=== PATIENT | male | born 1970 | race Caucasian/White ===

== ENCOUNTER 2020-01-28 12:09 | Outpatient (CLI) | payer OTHER, SELFPAY | END 2020-01-28 12:10 | disposition home or self-care (01) | LOC: ANHLAB 12:13 | PROVIDERS: PCP Family Medicine; Visit Provider Nurse Practitioner Adult Health | DX: R82.998 Other abnormal findings in urine (principal) | CPT/HCPCS: 87077; 87086; 87088; 87186 ==

== ENCOUNTER 2020-07-21 10:41 | Outpatient (CLI) | payer OTHER, SELFPAY ==
[2020-07-21 11:36] LABS: Add Urine Microscopic? YES; Appearance Urine Clear (Clear); Bacteria Urine 4+ /hpf; Bilirubin Urine Negative (Negative); Color Urine Yellow (Yellow); Glucose Urine UA Negative (Negative); Ketones Urine Negative (Negative); Leukocyte Esterase Ur 2+ LEU/UL (Negative); Mucus Urine Rare /lpf; Nitrate Urine Positive (Negative); Protein Urine 1+ mg/dL (Negative); Specific Grav Ur 1.024 (1.001-1.035); Squamous Epithelial Cell Urine Rare /hpf (Few); Urobilinogen Urine Negative mg/dL (<2.0); WBC Urine >75 /hpf
[2020-07-21 11:43] LABS: Blood Urine Negative (Negative)
== END 2020-07-21 10:42 | disposition home or self-care (01) ==
LOC: ANHLAB 10:43
PROVIDERS: PCP Family Medicine; Visit Provider Family Medicine
DX: N39.0 Urinary tract infection, site not specified (principal)
CPT/HCPCS: 81001; 87077; 87086; 87088; 87186

== ENCOUNTER 2022-06-21 11:30 | Outpatient (CLI) | payer OTHER, SELFPAY ==
[2022-06-21 12:14] LABS: Alanine Aminotransferase 39 U/L (6-50); Albumin Level 4.4 g/dL (3.5-5.1); Alkaline Phosphatase 49 U/L (38-126); Anion Gap 10 mmol/L (8-16); Aspartate Amino Transferase 35 U/L (17-59); Blood Urea Nitrogen 13 mg/dL (9-20); Carbon Dioxide 26 mmol/L (22-30); Chloride 103 mmol/L (98-107); Cholesterol 193 mg/dL (0-200); Estimated Glomerular Filt Rate > 60; Glucose 82 mg/dL (65-110); HDL Direct 32 mg/dL; Potassium 4.1 mmol/L (3.4-5.0); Sodium 139 mmol/L (137-145); Triglycerides 224 mg/dL (<150)
[2022-06-21 12:24] LABS: LDL Cholesterol Direct 113 mg/dL
[2022-06-21 13:13] LABS: Prostate Specific Antigen 1.5 ng/mL (< OR = 4.0)
== END 2022-06-21 11:31 | disposition home or self-care (01) ==
PROVIDERS: PCP Family Medicine; Referring Provider Nurse Practitioner Adult Health; Visit Provider Family Medicine
DX: Z13.228 Encounter for screening for other metabolic disorders (principal); Z13.220 Encounter for screening for lipoid disorders; Z12.5 Encounter for screening for malignant neoplasm of prostate
CPT/HCPCS: 36415; 80053; 80061; 84153; G0103

== ENCOUNTER 2022-10-17 12:29 | Outpatient (CLI) | payer OTHER, SELFPAY ==
--- NOTE | ~2022-10-17 | CT_ITS ---
EXAMINATION: CT abdomen pelvis wo/w con DATE: 10/17/2022 13:18 INDICATION: Gross hematuria TECHNIQUE: Computed tomography (CT) of the abdomen and pelvis was performed without and with 130 cc O mnipaque 350 intravenous contrast. The dose-length product was 1404.89 mGy-cm. Automated exposure con trol and iterative reconstruction technique were employed. COMPARISON: CT dated 10/17/2022 FINDINGS: Lung bases are unremarkable. Heart size normal. No significant pleural or pericardial effus ion. There is a large bladder stone measuring 5 x 2.8 cm. There is bladder wall thickening. There is a bladder diverticulum anteriorly. Prostate gland is enlarged. Small hiatal hernia. There is thickeni ng of the rectum. Cannot exclude rectal mass. No renal stones. Nonobstructive bowel pattern. No hydro nephrosis. Ureters are normal in course and caliber. Small subcentimeter hypodensity of the right kid mandi, too small to characterize, although most likely benign cysts. Fatty infiltration of the liver. The spleen, pancreas, adrenal glands and left kidney are unremarkabl e. Gallbladder is present. No significant vascular abnormality. No lymphadenopathy. Normal appendix. Severe osteoarthritis of the hips. Spinal rods noted extending inferiorly to the lower thoracic spine . Moderate lower thoracic spondylosis with mild wedge compression deformities of T11 and T12, likely chronic. No free air or free fluid. IMPRESSION: 1. Thickened slightly irregular bladder wall, consistent with cystitis versus hypertrophy from outlet obstruction. Small bladder diverticulum. 2: Large bladder stone. 3: Abnormal rectal wall thickening. Cannot exclude rectal carcinoma. Recommend clinical correlation. Reviewed, dictated and finalized at location L. IMPRESSION: 1. Thickened slightly irregular bladder wall, consistent with cystitis versus h ypertrophy from outlet obstruction. Small bladder diverticulum. 2: Large bladder stone. 3: Abnormal rectal wall thickening. Cannot exclude rectal carcinoma. Recommend clinical correlation.
== END 2022-10-17 12:30 | disposition home or self-care (01) ==
LOC: ANHIMG 12:31
PROVIDERS: PCP Family Medicine; Visit Provider Nurse Practitioner Adult Health
DX: R31.0 Gross hematuria (principal); N21.0 Calculus in bladder
CPT/HCPCS: 74178; Q9967

== ENCOUNTER 2022-10-26 01:57 | Day surgery (SDC) | payer OTHER, SELFPAY ==
--- NOTE | 2022-10-24 07:17 | P.HP_ITS ---
History of Present Illness History of Present Illness Consent: Risks, benefits, and alternatives have been discussed and questions answered. Patient agrees to proceed with procedure. Chief complaint: bladder stone Narrative: Mickey Coates is a 52 year old male with a known neurogenic bladder that requires intermittent self catheterization. He recently underwent evaluation for recurrent urinary tract infection was found to have a large bladder stone measuring 5 x 2.5 cm. After discussion of options he has elected for cystoscopy with laser lithotripsy and extraction bladder stone. He is aware the risks including, but not limited to, hematuria, need for catheterization, bladder injury and need for additional procedures in the future Review of Systems Review of Systems: All systems reviewed & are unremarkable except as noted in HPI and below PMFSH Past Medical History Medical History Paralysis Surgical History Surgical History H/O Spinal surgery Social History Social History Smoking status: Never smoker Alcohol intake: never Substance use: never Lack of Transportation: No Lack of Food: Never True Current Housing: I Have Housing Concerned About Future Housing: No Difficulty Paying Gas/Electric Bills: No Difficulty Paying for Meds: No Currently Unemployed: No Education: High School Diploma/GED Difficulty w/ Childcare or Family Care: No Living arrangements: with family Additional living arrangements comments: Occupation/Education: occupation 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 (if verbalized by the patient): Male Sexual Orientation (if Verbalized by the Patient): Straight or Heterosexual Agree to blood products: Yes Meds Home Medications and Allergies Home Medications Medication Instructions Recorded Confirmed Type baclofen 20 mg tablet 20 mg PO TID PRN muscle spasms #90 04/07/22 04/07/22 Rx tabs oxybutynin chloride 5 mg 5 mg PO TID #90 tabs 08/24/22 Rx tablet,extended release 24 hr Allergies Allergy/AdvReac Type Severity Reaction Status Date / Time No Known Allergies Allergy Mild Verified 04/07/22 16:25 Exam Const: General: no acute distress Resp: Effort & Inspection: normal respiratory effort GI: Inspection: non-distended GI Palp: No abdominal tenderness and No Guarding due to palpation present (GI) Auscultation: normal bowel sounds Assessment and Plan Assessment and plan (1) Bladder stone: Code(s): N21.0 - Calculus in bladder Status: Acute Assessment and Plan: * cystoscopy, laser lithotripsy bladder stone extraction
[2022-10-25 08:54] VITALS: BMI 29.0
--- NOTE | 2022-10-25 09:11 | PC.NURSE ---
Report to the Outpatient Waiting Room, entrance under the green pavilion located off [facility], at time 0815 on date 10/26/22. Planned Procedure Time: 1015. Time changes happen often and if your time is changed the preop area will call you the afternoon before. - You and your visitor will be asked to self-screen and do not enter if you have any COVID symptoms. - A mask is optional within the hospital at this time. Patients may have clear liquids (water, carbonated beverages, clear teas, apple juice) until 3 hours prior to surgery with a maximum of 20 ounces. - No food from midnight until time of surgery Take the following medications with a SIP of water the morning of surgery: BACLOFEN DO NOT STOP ANY OF YOUR OTHER PRESCRIPTION MEDICATIONS PRIOR TO SURGERY EXCEPT THE FOLLOWING Medications to discontinue per physician: VITAMINS/SUPPLEMENTS Date to take last dose: NO MORE UNTIL AFTER SURGERY Please no make-up, nail wolof, hairspray, perfume, deodorant, or body powder the day of surgery. No jewelry (including any body piercings) or valuables the day of surgery, leave them at home. Please take a shower or bath the night before, or the morning of, surgery with an antibacterial soap. Wear comfortable, loose fitting clothing. - Jewelry must be removed prior to entering the operating room. Rings and piercings that are not removed may be cut off. - The hospital will not accept responsibility for valuables. - Please leave all valuables, including medications, at home the day of surgery. If you are going home after surgery, a licensed local intermodal truck driver must drive you home. - NO public transportation without another adult if you receive anesthesia. - We recommend that an adult stay with you for 24 hours following discharge. - We also recommend that you do not drive, make important decision, drink alcoholic beverages, or take any drugs that were not prescribed by your health care provider for at least 24 hours after your discharge time. Follow any additional instructions given to you from your surgeon. If you or anyone in your household have experienced Covid symptoms in the past week, please notify your surgeon or the nurse liaison at the phone number below for possible testing. Telephone instructions given to PT - DEON SANABRIA and asked if any additional questions and then verbalized understanding. Patient advised to call surgeon office or pre surgery nurse liaison [phone] if any additional questions.
[2022-10-26] VITALS (9 sets, daily range): BP systolic 98–138; BP diastolic 43–89; PULSE 65–81; RESP 10–20; TEMP 36.2–36.8; O2SAT 100
--- NOTE | ~2022-10-26 | XR_ITS ---
EXAMINATION: XR fluoroscopy no charge DATE: 10/26/2022 10:24 INDICATION: Bladder stone. TECHNIQUE: A single intraoperative fluoroscopic view of the pelvis was obtained. I was not present. F luoroscopy exposure time was 38 seconds. COMPARISON: CT abdomen and pelvis 10/17/2022 FINDINGS: There is a wire in the bladder. There is a large stone in the bladder. IMPRESSION: 1. Large bladder stone. Reviewed, dictated and finalized at location A. IMPRESSION: 1. Large bladder stone.
--- NOTE | 2022-10-26 06:44 | WPDHPUPDATE1 ---
History and Physical Update Update Date/Time: 10/26/22 06:44 History and Physical has been reviewed, including an updated exam of the patient. There are NO changes in the patient's condition. Risks, benefits, and alternatives have been discussed and questions answered. Patient agrees to proceed with procedure.
[2022-10-26] MEDS: LACTATED RINGERS 1,000 ML 30 ML IV CONT ×2 (09:35→11:35)
--- NOTE | 2022-10-26 09:45 | WPDANESEPPF ---
Anes - Initial Pre Proc Eval Procedure: Operation Date: 10/26/22 10:15 Proposed Procedures p Cystolitholapaxy - Dylan Alcaraz MD Date/Time: 10/26/22 09:45 Surgeon: Dylan Alcaraz MD Pre Op Diagnosis: bladder stone Patient Data Age: 52 Gender: M Height: 1.79 m Weight: 93 kg Last Vital Signs Temp 36.8 C 10/26/22 09:00 Pulse 74 10/26/22 09:00 Resp 16 10/26/22 09:00 BP 130/63 10/26/22 09:00 Pulse Ox 100 10/26/22 09:00 O2 Del Method Room Air 10/26/22 09:00 Allergies Allergy/AdvReac Type Severity Reaction Status Date / Time No Known Allergies Allergy Mild Verified 10/26/22 09:24 Home Medications Medication Instructions Recorded Confirmed Type baclofen 20 mg tablet 20 mg PO TID PRN muscle spasms #90 04/07/22 10/26/22 Rx tabs oxybutynin chloride 5 mg 5 mg PO TID #90 tabs 08/24/22 10/26/22 Rx tablet,extended release 24 hr cholecalciferol (vitamin D3) 125 125 mcg PO DAILY 10/25/22 10/26/22 History mcg (5,000 unit) tablet (Vitamin D3) cranberry fruit 450 mg tablet 450 mg PO DAILY 10/25/22 10/26/22 History (cranberry) glucosamine sulfate 500 mg tablet 500 mg PO DAILY 10/25/22 10/26/22 History (Glucosamine) mecobalamin (vitamin B12) 1,000 1,000 mcg PO DAILY 10/25/22 10/26/22 History mcg chewable tablet (B12 Active) turmeric 400 mg capsule 400 mg PO DAILY 10/25/22 10/26/22 History Patient hx anesthesia problems: none Family hx anesthesia problems: none Results Review: All pre-operative results and documents have been reviewed as part of the pre-operative evaluation. [facility] Past Medical History Medical History Paralysis Surgical History Surgical History H/O Spinal surgery Social History Social History Smoking status: Never smoker Alcohol intake: never Substance use: never Substance use type: does not use Lack of Transportation: No Lack of Food: Never True Current Housing: I Have Housing Concerned About Future Housing: No Difficulty Paying Gas/Electric Bills: No Difficulty Paying for Meds: No Currently Unemployed: No Education: High School Diploma/GED Difficulty w/ Childcare or Family Care: No Living arrangements: with family Additional living arrangements comments: Occupation/Education: occupation 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 (if verbalized by the patient): Male Sexual Orientation (if Verbalized by the Patient): Straight or Heterosexual Spiritual care concerns: No Agree to blood products: Yes Anes - Eval Final PreProcedure Day of Procedure 10/26/22 09:45 Patient weight: overweight Heart: regular rate and rhythm Lungs: clear to auscultation Airway: Mallampati scale class II Neurological: alert and oriented Last oral intake: >/= 8 hours ASA classification: III Emergent: no Anesthetic plan: proceed Anesthesia type and monitoring: general LMA and standard monitoring Results Review: All pre-operative results and documents have been reviewed as part of the pre-operative evaluation. Informed Consent: The patient's anesthetic plan and its attendant risks and benefits were discussed with the patient/family/POA. Questions were solicited and answers provided to the satisfaction of the patient/family/POA.
[2022-10-26] MEDS: ceFAZolin 2 GM/D5W 50 ML 2 GM/50 ML BAG IVPB (10:02)
--- NOTE | 2022-10-26 11:31 | W.PM.PROC2 ---
Procedure Note - Detailed Date of Procedure 10/26/22 Pre-op Diagnosis Bladder stone Post-op Diagnosis Other ( 1. Tight bladder neck contracture 2. Large bladder stone) Procedure Performed Cystoscopy, urethral dilatation and laser lithotripsy and extraction of a large bladder calculus Surgeon Dylan Alcaraz MD Anesthesia General Description of Procedure patient is brought to the operative suite was prepped draped in routine sterile fashion while in dorsal lithotomy position after the uneventful induction of a general anesthetic. Cystoscopy is undertaken with a 21 F rigid cystoscope. He has a very tight bladder neck contracture which precludes entry into the bladder. I placed a wire into his bladder and confirmed positioning by fluoroscopy. I then dilated the bladder neck from 8 F to 20 F. Cystoscopy was then undertaken in his large bladder stone is identified. This measures at least 3 cm in long axis. Using a 550 micron holmium laser I fractured this in the multiple pieces which were extracted using an [employer] evacuator. I placed a [address] catheter at the termination. Efflux was basically clear. He tolerated the procedure well road I planned leave the catheter for a week.
--- NOTE | 2022-10-26 11:35 | SUR.PREOP ---
pt straight cathed self.
--- NOTE | 2022-10-26 12:45 | SUR.PHASEI ---
Seen by Dr Alcaraz, urine light pink and clear with CBI turned off. Disconnected CBI and plugged port.
== END 2022-10-26 13:55 | disposition home or self-care (01) ==
PROVIDERS: PCP Family Medicine; Visit Provider Urology
PROC: 0TCB8ZZ Extirpation of Matter from Bladder, Via Natural or Artificial Opening Endoscopic (ICD-10-PCS; CPT 52352; principal; 2022-10-26 10:15)
DX: N21.0 Calculus in bladder (principal); N31.9 Neuromuscular dysfunction of bladder, unspecified
CPT/HCPCS: 52318; 82365; 88300; 99199; C1726; C1769; J0690; J2250; J2405; J2704; J3010; J7120

== ENCOUNTER 2023-07-11 00:56 | Day surgery (SDC) | payer OTHER, SELFPAY ==
[2023-05-22 14:38] VITALS: BMI 29.4
--- NOTE | 2023-06-11 10:18 | SUR.PREOP ---
Addendum entered by LEONARDO McleanA 06/11/23 10:25: Patient mention that he has an appointment this afternoon with urologist related to UTI symptoms. Spoke with Dr. Rice and he wants him to reschedule to next week or later. Relayed information to Mynor and he is going to check with his to see what date works better for her and call me back. Original Note: Patient called regarding upcoming procedure. Reviewed preop instructions, appointment times, and procedure prep.
--- NOTE | 2023-06-14 13:22 | PC.NURSE ---
Pt re scheduled procedure. Pt updated with new dates and times.
--- NOTE | 2023-07-09 11:04 | SUR.PREOP ---
Patient called regarding upcoming procedure. Voicemail left regarding appointment times.
[2023-07-11 10:20] VITALS: BP 168/78; PULSE 88; RESP 18; TEMP 36.2; O2SAT 100
[2023-07-11] MEDS: LACTATED RINGERS 1,000 ML 150 ML IV CONT (10:31)
--- NOTE | 2023-07-11 11:00 | PM.HPGS ---
History of Present Illness History of Present Illness Consent: Risks, benefits, and alternatives have been discussed and questions answered. Patient agrees to proceed with procedure. Chief complaint: Dysphagia,Abnormal findings on diagnostic imaging Narrative: Mickey Coates is a 53 year old male here for egd and colonoscopy, he is paraplegic and last colonoscopy about 13 years ago, CT scan incidental finding of rectal thickening, also has intermittent dysphagia, he is not using any ppi. Review of Systems Constitutional: Constitutional: Denies headache(s) Eyes: Eyes: Denies blurry vision ENT: Reports Normal hearing present, Denies headache(s) and Denies neck pain Cardiovascular: Cardiovascular: Denies chest pain and Denies dyspnea Respiratory: Respiratory: Denies dyspnea Gastrointestinal: Gastrointestinal: Reports no additional gastrointestinal complaints Musculoskeletal: Comments: paraplegic Integumentary/Breasts: Skin/Breast: Denies dry skin Neurologic: Reports Normal hearing present and Denies headache(s) Psychiatric: Psychiatric: Denies anxiety Endocrine: Endocrine: Denies change in body appearance Hematologic/Lymphatic: Hematologic/Lymphatic: Denies easy bleeding Allergic/Immunologic: Allergic/Immunologic: Denies urticaria PMF Past Medical History Medical History (Updated 07/11/23 @ 11:03 by Tyler Fontenot MD) Abnormality of rectum Dysphagia Paralysis Surgical History Surgical History H/O Spinal surgery Social History Social History Smoking status: Never smoker Alcohol intake: never Substance use: never Substance use type: does not use Lack of Transportation: No Lack of Food: Never True Current Housing: I Have Housing Concerned About Future Housing: No Difficulty Paying Gas/Electric Bills: No Difficulty Paying for Meds: No Currently Unemployed: No Education: High School Diploma/GED Difficulty w/ Childcare or Family Care: No Living arrangements: with family Additional living arrangements comments: Occupation/Education: occupation 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 (if verbalized by the patient): Male Sexual Orientation (if Verbalized by the Patient): Straight or Heterosexual Spiritual care concerns: No Agree to blood products: Yes Meds Home Medications and Allergies Home Medications Medication Instructions Recorded Confirmed Type cholecalciferol (vitamin D3) 125 125 mcg PO DAILY 10/25/22 05/22/23 History mcg (5,000 unit) tablet (Vitamin D3) glucosamine sulfate 500 mg tablet 500 mg PO DAILY 10/25/22 05/22/23 History (Glucosamine) mecobalamin (vitamin B12) 1,000 1,000 mcg PO DAILY 10/25/22 05/22/23 History mcg chewable tablet (B12 Active) turmeric 400 mg capsule 400 mg PO DAILY 10/25/22 05/22/23 History baclofen 20 mg tablet 20 mg PO TID PRN muscle spasms #90 03/16/23 05/22/23 Rx tabs baclofen 10 mg tablet 10 mg PO BID #60 tabs 05/01/23 05/22/23 Rx oxybutynin chloride 5 mg 5 mg PO TID #90 tabs 06/25/23 Rx tablet,extended release 24 hr Allergies Allergy/AdvReac Type Severity Reaction Status Date / Time No Known Allergies Allergy Mild Verified 07/11/23 10:20 Vital Signs Vital Signs - 24 hr 07/11/23 10:20 Temperature 97.2 F L Pulse Rate 88 Respiratory Rate 18 Blood Pressure 168/78 H Pulse Oximetry 100 Oxygen Delivery Room Air Exam Const: General: comfortable and no acute distress HENMT: Face/Nose/Sinus: Normal nares present Eyes: General: appearance normal, both eyes and all related structures Neck: Neck: no JVD Resp: Auscultation: clear to auscultation bilaterally Cardio: Rate: regular rate Rhythm: regular rhythm GI: Inspection: non-distended GI Palp: Yes Soft to palpation Skin: General skin exam: normal co
--- NOTE | 2023-07-11 11:08 | WPDANESEPPF ---
Anes - Initial Pre Proc Eval Procedure: Operation Date: 07/11/23 11:30 Proposed Procedures p Esophagogastroduodenoscopy & Colonoscopy - Tyler Fontenot MD Date/Time: 07/11/23 11:08 Surgeon: Tyler Fontenot MD Pre Op Diagnosis: Dysphagia,Abnormal findings on diagnostic imaging Patient Data Age: 53 Gender: M Height: 1.78 m Weight: 93 kg Last Vital Signs Temp 97.2 F L 07/11/23 10:20 Pulse 88 07/11/23 10:20 Resp 18 07/11/23 10:20 BP 168/78 H 07/11/23 10:20 Pulse Ox 100 07/11/23 10:20 O2 Del Method Room Air 07/11/23 10:20 Allergies Allergy/AdvReac Type Severity Reaction Status Date / Time No Known Allergies Allergy Mild Verified 07/11/23 10:20 Home Medications Medication Instructions Recorded Confirmed Type cholecalciferol (vitamin D3) 125 125 mcg PO DAILY 10/25/22 05/22/23 History mcg (5,000 unit) tablet (Vitamin D3) glucosamine sulfate 500 mg tablet 500 mg PO DAILY 10/25/22 05/22/23 History (Glucosamine) mecobalamin (vitamin B12) 1,000 1,000 mcg PO DAILY 10/25/22 05/22/23 History mcg chewable tablet (B12 Active) turmeric 400 mg capsule 400 mg PO DAILY 10/25/22 05/22/23 History baclofen 20 mg tablet 20 mg PO TID PRN muscle spasms #90 03/16/23 05/22/23 Rx tabs baclofen 10 mg tablet 10 mg PO BID #60 tabs 05/01/23 05/22/23 Rx oxybutynin chloride 5 mg 5 mg PO TID #90 tabs 06/25/23 Rx tablet,extended release 24 hr Patient hx anesthesia problems: none Family hx anesthesia problems: none Results Review: All pre-operative results and documents have been reviewed as part of the pre-operative evaluation. [facility] Past Medical History Medical History (Updated 07/11/23 @ 11:03 by Tyler Fontenot MD) Abnormality of rectum Dysphagia Paralysis Surgical History Surgical History H/O Spinal surgery Social History Social History Smoking status: Never smoker Alcohol intake: never Substance use: never Substance use type: does not use Lack of Transportation: No Lack of Food: Never True Current Housing: I Have Housing Concerned About Future Housing: No Difficulty Paying Gas/Electric Bills: No Difficulty Paying for Meds: No Currently Unemployed: No Education: High School Diploma/GED Difficulty w/ Childcare or Family Care: No Living arrangements: with family Additional living arrangements comments: Occupation/Education: occupation 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 (if verbalized by the patient): Male Sexual Orientation (if Verbalized by the Patient): Straight or Heterosexual Spiritual care concerns: No Agree to blood products: Yes Anes - Eval Final PreProcedure Day of Procedure 07/11/23 11:08 Patient weight: obese Heart: regular rate and rhythm Lungs: clear to auscultation Airway: Mallampati scale class II Neurological: alert and oriented Last oral intake: >/= 8 hours ASA classification: III Emergent: no Anesthetic plan: proceed Anesthesia type and monitoring: general GIVS and standard monitoring Results Review: All pre-operative results and documents have been reviewed as part of the pre-operative evaluation. Informed Consent: The patient's anesthetic plan and its attendant risks and benefits were discussed with the patient/family/POA. Questions were solicited and answers provided to the satisfaction of the patient/family/POA.
--- NOTE | 2023-07-11 11:16 | SUR.OPER ---
EGD began at 1109 and ended at 1114. Colonoscopy began at 1116.
[2023-07-11 11:40] VITALS: BP 111/74; PULSE 69; RESP 24; O2SAT 95
[2023-07-11 11:50] VITALS: BP 119/81; PULSE 63; RESP 17; O2SAT 95
== END 2023-07-11 12:07 | disposition home health service (06) ==
PROVIDERS: PCP Family Medicine; Visit Provider Internal Medicine Gastroenterology
PROC: 0DJ08ZZ Inspection of Upper Intestinal Tract, Via Natural or Artificial Opening Endoscopic (ICD-10-PCS; CPT 43235; principal; 2023-07-11 11:30)
DX: K62.3 Rectal prolapse (principal); K62.1 Rectal polyp; R13.10 Dysphagia, unspecified; G82.20 Paraplegia, unspecified; E66.9 Obesity, unspecified; Z68.29 Body mass index [BMI] 29.0-29.9, adult
CPT/HCPCS: 45385; 43235; 88305; J2704; J7120

== ENCOUNTER 2024-03-24 10:54 | Inpatient (IN) | payer OTHER, SELFPAY ==
--- NOTE | ~2024-03-24 | XR_ITS ---
EXAMINATION: [id number] DATE: 03/24/2024 11:32 INDICATION: Formation at the left knee concerning for dislocation in a paraplegic TECHNIQUE: AP and lateral views of the left knee were obtained. COMPARISON: None. FINDINGS: Spiral fracture of the distal left femoral diaphysis with 20 degrees anterior angulation and 3 cm pro ximal migration. There is prominent heterotopic ossification along the posterior margin of the femora l diaphysis immediately proximal to the fracture fragment. Soft tissue swelling and edema about the f racture and extending distally to the knee. The knee joint is not well profiled but alignment appears grossly anatomic. There is at least mild osteoarthritis at the tail femoral compartment. No evident knee joint effusion. IMPRESSION: 1. Spiral fracture of the distal left femoral diaphysis with 20 degrees anterior angulation 3 similar proximal migration. Reviewed, dictated and finalized at location A. IMPRESSION: 1. Spiral fracture of the distal left femoral diaphysis with 20 degrees anterio r angulation 3 similar proximal migration.
--- NOTE | ~2024-03-24 | US_ITS ---
EXAMINATION: US venous doppler [facility] DATE: 03/25/2024 21:58 INDICATION: left leg swelling . TECHNIQUE: Grayscale images without and with compression and Doppler images of the left lower extremi ty veins were obtained. COMPARISON: None FINDINGS: The popliteal vein could not be evaluated due to overlying cast/bandage material. The left common fem oral vein, profunda (deep) femoral vein, femoral vein, peroneal vein, posterior tibial veins, and gr eater saphenous vein are patent. IMPRESSION: No evidence of deep venous thrombosis in the visualized lower extremity veins. Reviewed, dictated and finalized at location K.
--- NOTE | ~2024-03-24 | XR_ITS ---
EXAMINATION: XR hip LT 2V w AP pelvis DATE: 03/24/2024 11:31 INDICATION: Left hip dislocation. TECHNIQUE: An anteroposterior view of the pelvis and 3 views of left hip were obtained. COMPARISON: CT abdomen and pelvis 10/17/2022 FINDINGS: Alignment is normal. No fracture. There is moderate osteoarthritis of the hips. There is fu berta of the sacroiliac joints and pubic symphysis. There are stones in the bladder. IMPRESSION: 1. Moderate osteoarthritis of the hips. 2. Stones in the bladder. Reviewed, dictated and finalized at location B.
--- NOTE | ~2024-03-24 | XR_ITS ---
EXAM: XR femur LT min 2V DATE: 03/26/2024 18:22 HISTORY: reevaluate fx . COMPARISON: 03/24/2024. FINDINGS: Decreased mineralization. Spiral fracture of the left femoral midshaft with 2.5 cm overlap , 1.1 cm lateral displacement and 15 degrees lateral angulation and 1.1 mm anterior displacement with 17 degrees anterior angulation. Heterotopic bone formation about the fracture site. No lytic or milla tic lesion. Degenerative changes in the hip and knee. No erosion or periosteal change. Multiple bladd er stones. IMPRESSION: Spiral fracture of the left femoral midshaft with mild anterolateral displacement/angulat ion and mild overlap. Reviewed, dictated and finalized at location K. IMPRESSION: Spiral fracture of the left femoral midshaft with mild anterolatera l displacement/angulation and mild overlap.
[2024-03-24 10:58] VITALS: BP 138/74; PULSE 130; RESP 20; TEMP 37; O2SAT 100
--- NOTE | 2024-03-24 11:04 | ED_ITS ---
HPI - Extremity Problem General Chief complaint: Extremity Problem,Nontraumatic <Cecy Coleman APRN - Last Filed: 03/24/24 11:09> Stated complaint: L knee swelling after hearing a POP <Cecy Coleman APRN - Last Erickson ed: 03/24/24 11:09> Time Seen by Provider: 03/24/24 11:00 <Cecy Coleman APRN - Last Filed: 03/24/24 11:09> Focused HPI: Patient is a 53-year-old male who presents to the ER with concerns of left lower extremity swelling. He reports he is a paraplegic and yesterday noticed his left femur and knee started swelling after transferring from his chair to the bed. Patient reports he has accidentally broken his right femur in the past. He reports noticed a loud pop yesterday afternoon. His left LE, specifically knee and upper leg are now swollen. Patient also has concerns that he may have a UTI due to decreased urine production and dark-colored urine. He denies chest pain, shortness of breath, recent fevers. GENERAL: Well-appearing, well-nourished, and in no acute distress. HEAD: Normocephalic, atraumatic. CHEST: Clear to auscultation. ?No respiratory distress. HEART: Tachycardia and rhythm.? NEURO: ?Alert and oriented x3. SKIN: LLE thigh and knee swelling. Patient screened in triage and initial orders placed.? ?Additional care and disposition to be based upon?diagnostic testing and treatment. <Cecy Coleman APRN - Last Filed: 03/24/24 11:09> History of Present Illness HPI Narrative: Agree with HPI <Tyree Velasco MD - Last Filed: 03/25/24 09:47> Related Data Home medications: Home Medications Medication Instructions Recorded Confirmed cholecalciferol (vitamin D3) 125 125 mcg PO DAILY 10/25/22 05/22/23 mcg (5,000 unit) tablet (Vitamin D3) glucosamine sulfate 500 mg tablet 500 mg PO DAILY 10/25/22 05/22/23 (Glucosamine) mecobalamin (vitamin B12) 1,000 1,000 mcg PO DAILY 10/25/22 05/22/23 mcg chewable tablet (B12 Active) turmeric 400 mg capsule 400 mg PO DAILY 10/25/22 05/22/23 <Cecy Coleman APRN - Last Filed: 03/24/24 11:09> Allergies/Adverse reactions: Allergies Allergy/AdvReac Type Severity Reaction Status Date / Time No Known Allergies Allergy Mild Verified 03/24/24 10:55 <Cecy Coleman APRN - Last Filed: 03/24/24 11:09> Review of Systems Review of Systems: All systems reviewed & are unremarkable except as noted in HPI and below <Tyree Velasco MD - Last Filed: 03/25/24 09:47> Constitutional: Constitutional: Reports no additional constitutional complaints <Tyree Velasco MD - Last Filed: 03/25/24 09:47> Cardiovascular: Cardiovascular: Reports no additional cardiovascular complaints <Tyree Velasco MD - Last Filed: 03/25/24 09:47> Respiratory: Respiratory: Reports no additional respiratory complaints <Tyree Velasco MD - Last Filed: 03/25/24 09:47> Gastrointestinal: Gastrointestinal: Reports no additional gastrointestinal complaints <Tyree Velasco MD - Last Filed: 03/25/24 09:47> [facility] Past Medical History Medical History: Medical History (Updated 03/25/24 @ 17:57 by Osvaldo Vilchis MD) Abnormality of rectum Dysphagia Paralysis <Cecy Coleman APRN - Last Filed: 03/24/24 11:09> Surgical History Surgical History: Surgical History H/O Spinal surgery <Cecy Coleman APRN - Last Filed: 03/24/24 11:09> Social History Social History: Social History Smoking status: Never smoker Alcohol intake: never Substance use: never Substance use type: does not use Lack of Transportation: No Lack of Food: Never True Current Housing: I Have Housing Concerned About Future Housing: No Difficulty Paying Gas/Electric Bills: No Difficulty Paying for Meds: No Currently Unemployed: No Education: High School Diploma/GED Difficulty w/ Childcare or Family Care: No Living arrangements: with family Additional living arrangements comments: Occupation/Education: occupation 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 (if verbalized by the patient): Male Sexual Orientation (if Verbalized by the Patient): Straight or Heterosexual Spiritual care concerns: No Agree to blood products: Yes <Cecy Coleman APRN - Last Filed: 03/24/24 11:09> Exam Narrative: GENERAL: Well-appearing, well-nourished, and in no acute distress. HEAD: Normocephalic, atraumatic. ENT: Mucous membranes moist. NECK: Supple. CHEST: Clear to auscultation. No respiratory distress. HEART: Regular rate and rhythm. Normal peripheral pulses.. EXTREMITIES: deformity distal femur with swelling on left side. No deformity to right lower extremity. Patient is paralyzed and lower extremities. Normal pulses in the bilateral lower extremities. SKIN: Warm, dry, no rash. NEURO: Alert and oriented x3. PSYCH: Normal mood and affect. <Tyree Velasco MD - Last Filed: 03/25/24 09:47> Course Course Emergency Course: patient resting comfortably. Informed of results. Dr. Tapia feels patient would benefit from care a tertiary care center. I discussed case with Orthopedic surgery, Dr. Reyes, at [facility] and they recommend patient be placed in a long-leg posterior splint for comfort. Hospitalist Dr. Aguayo accepted the patient. Urine felt to be colonized. Signed out at 2200 on 03/24/[address] Mccullough. Awaiting a bed. <Tyree Velasco MD - Last Filed: 03/25/24 09:47> Reevaluation(s) Reevaluation #1: I assumed care of this patient at shift change with pending transfer to [facility] for ortho consult , patient comfortably resting in the bed in no discomfort. I did discuss with Dr. Fields , recommends transfer to [facility] as it requires trauma surgery . Discussed with Selene will accept the pt for impending transfer . <Osvaldo Vilchis MD - Last Filed: 03/25/24 17:57> Vital Signs Vital signs: Vital Signs Temperature 37.0 C 03/24/24 10:58 Pulse Rate 130 H 03/24/24 10:58 Respiratory Rate 20 03/24/24 10:58 Blood Pressure 138/74 03/24/24 10:58 Pulse Oximetry 100 03/24/24 10:58 Oxygen Delivery Room Air 03/24/24 10:58 Temperature 37.2 C 03/25/24 10:57 Pulse Rate 81 03/25/24 14:49 Respiratory Rate 14 03/25/24 14:49 Blood Pressure 116/67 03/25/24 14:49 Pulse Oximetry 100 03/25/24 14:49 Oxygen Delivery Room Air 03/24/24 10:58 <Cecy Coleman APRN - Last Filed: 03/24/24 11:09> Vital Signs Temperature 37.0 C 03/24/24 10:58 Pulse Rate 130 H 03/24/24 10:58 Respiratory Rate 20 03/24/24 10:58 Blood Pressure 138/74 03/24/24 10:58 Pulse Oximetry 100 03/24/24 10:58 Oxygen Delivery Room Air 03/24/24 10:58 Temperature 37.2 C 03/25/24 10:57 Pulse Rate 81 03/25/24 14:49 Respiratory Rate 14 03/25/24 14:49 Blood Pressure 116/67 03/25/24 14:49 Pulse Oximetry 100 03/25/24 14:49 Oxygen Delivery Room Air 03/24/24 10:58 <Tyree Velasco MD - Last Filed: 03/25/24 09:47> Vital Signs Temperature 37.0 C 03/24/24 10:58 Pulse Rate 130 H 03/24/24 10:58 Respiratory Rate 20 03/24/24 10:58 Blood Pressure 138/74 03/24/24 10:58 Pulse Oximetry 100 03/24/24 10:58 Oxygen Delivery Room Air 03/24/24 10:58 Temperature 37.2 C 03/25/24 10:57 Pulse Rate 81 03/25/24 14:49 Respiratory Rate 14 03/25/24 14:49 Blood Pressure 116/67 03/25/24 14:49 Pulse Oximetry 100 03/25/24 14:49 Oxygen Delivery Room Air 03/24/24 10:58 <Osvaldo Vilchis MD - Last Filed: 03/25/24 17:57> MDM - Extremity (Nontraumatic) Lab Data Result diagrams: 03/24/24 11:40 03/24/24 11:40 <Cecy Coleman, FINANCIAL SERVICE PROFESSIONAL - Last Filed: 03/24/24 11:09> Labs: Lab Results 03/24/24 03/24/24 03/24/24 Range/Units 11:40 11:40 13:30 WBC 10.1 H (4.5-10.0) K/mm3 RBC 4.46 L (4.6-6.20) M/mm3 Hgb 13.9 L (14.0-18.0) g/dL Hct 39.8 L (42.0-52.0) % MCV 89.2 (80-100) fl MCH 31.2 (26-34) pg MCHC 34.9 (32-36) g/dl RDW 12.8 (11.5-14.5) % Plt Count 247 (150-375) k/mm3 MPV 10.4 (7.4-10.4) fl Immature Gran % (Auto) 0.2 (0-0.5) % Neut % (Auto) 76.7 H (45.5-73.1) % Lymph % (Auto) 14.1 L (18.3-44.2) % Davidson % (Auto) 8.4 (2.6-8.5) % Eos % (Auto) 0.2 (0-4.4) % Baso % (Auto) 0.4 (0.2-1.2) % Lymph # (Auto) 1.42 (0.9-3.2) K/mm3 Davidson # (Auto) 0.9 H (0.1-0.6) K/mm3 Eos # (Auto) 0.0 (0-0.3) K/mm3 Baso # (Auto) 0.0 (0.0-0.1) K/mm3 Abs Immat Gran (auto) 0.02 (0.00-0.031) K/mm3 Absolute Neuts (auto) 7.7 H (1.3-6.7) K/mm3 Absolute Nucleated RBC 0.000 (0.0-0.012) K/mm3 Nucleated RBC % 0.0 (0.0-0.2) % PT 13.7 (11.1-14.7) Seconds INR 1.0 APTT 28.0 (22.3-36.8) Seconds D-Dimer 2.12 H Cancelled (<0.48) ug/mL Sodium 137 (137-145) mmol/L Potassium 3.8 (3.4-5.0) mmol/L Chloride 99 (98-107) mmol/L Carbon Dioxide 29 (22-30) mmol/L Anion Gap 9 (4-12) mmol/L BUN 16 (9-20) mg/dL Creatinine 0.80 (0.7-1.3) mg/dL Estim Creat Clear Calc 100 ml/min Estimated GFR > 60 (59 - ) Glucose 104 (65-110) mg/dL Lactic Acid 2.6 H (0.7-2.0) mmol/L Calcium 8.8 (8.4-10.2) mg/dL Total Creatine Kinase 360 H (55-170) U/L Urine Color Dark yellow (Yellow) Urine Appearance Cloudy H (Clear) Urine pH 8.5 (5.0-9.0) Ur Specific [place] 1.028 (1.001-1.035) Urine Protein 3+ H (Negative) mg/dL Urine Glucose (UA) Negative (Negative) mg/dL Urine Ketones Trace H (Negative) mg/dL Ur Blood (Man) 1+ H (Negative) Urine Nitrate Positive H (Negative) Urine Bilirubin 1+ H (Negative) Urine Urobilinogen 2.0 H (<2.0) mg/dL Add Ur Microanalysis Reviewed Leukocyte Esterase Rfl 2+ H (Negative) LEIDY/UL Urine RBC 21-50 H (0-2) /hpf Urine WBC >100 H (0-3) /hpf Ur Squamous Epith Cells Occasional (Few) /hpf Urine Bacteria 4+ H /hpf Urine Casts 3-5 03/24/24 Range/Units 15:21 WBC (4.5-10.0) K/mm3 RBC (4.6-6.20) M/mm3 Hgb (14.0-18.0) g/dL Hct (42.0-52.0) % MCV (80-100) fl MCH (26-34) pg MCHC (32-36) g/dl RDW (11.5-14.5) % Plt Count (150-375) k/mm3 MPV (7.4-10.4) fl Immature Gran % (Auto) (0-0.5) % Neut % (Auto) (45.5-73.1) % Lymph % (Auto) (18.3-44.2) % Davidson % (Auto) (2.6-8.5) % Eos % (Auto) (0-4.4) % Baso % (Auto) (0.2-1.2) % Lymph # (Auto) (0.9-3.2) K/mm3 Davidson # (Auto) (0.1-0.6) K/mm3 Eos # (Auto) (0-0.3) K/mm3 Baso # (Auto) (0.0-0.1) K/mm3 Abs Immat Gran (auto) (0.00-0.031) K/mm3 Absolute Neuts (auto) (1.3-6.7) K/mm3 Absolute Nucleated RBC (0.0-0.012) K/mm3 Nucleated RBC % (0.0-0.2) % PT (11.1-14.7) Seconds INR APTT (22.3-36.8) Seconds D-Dimer (<0.48) ug/mL Sodium (137-145) mmol/L Potassium (3.4-5.0) mmol/L Chloride (98-107) mmol/L Carbon Dioxide (22-30) mmol/L Anion Gap (4-12) mmol/L BUN (9-20) mg/dL Creatinine (0.7-1.3) mg/dL Estim Creat Clear Calc ml/min Estimated GFR (59 - ) Glucose (65-110) mg/dL Lactic Acid 1.8 (0.7-2.0) mmol/L Calcium (8.4-10.2) mg/dL Total Creatine Kinase (55-170) U/L Urine Color (Yellow) Urine Appearance (Clear) Urine pH (5.0-9.0) Ur Specific [place] (1.001-1.035) Urine Protein (Negative) mg/dL Urine Glucose (UA) (Negative) mg/dL Urine Ketones (Negative) mg/dL Ur Blood (Man) (Negative) Urine Nitrate (Negative) Urine Bilirubin (Negative) Urine Urobilinogen (<2.0) mg/dL Add Ur Microanalysis Leukocyte Esterase Rfl (Negative) LEIDY/UL Urine RBC (0-2) /hpf Urine WBC (0-3) /hpf Ur Squamous Epith Cells (Few) /hpf Urine Bacteria /hpf Urine Casts <Cecy Coleman, FINANCIAL SERVICE PROFESSIONAL - Last Filed: 03/24/24 11:09> Lab Results 03/24/24 03/24/24 03/24/24 Range/Units 11:40 11:40 13:30 WBC 10.1 H (4.5-10.0) K/mm3 RBC 4.46 L (4.6-6.20) M/mm3 Hgb 13.9 L (14.0-18.0) g/dL Hct 39.8 L (42.0-52.0) % MCV 89.2 (80-100) fl MCH 31.2 (26-34) pg MCHC 34.9 (32-36) g/dl RDW 12.8 (11.5-14.5) % Plt Count 247 (150-375) k/mm3 MPV 10.4 (7.4-10.4) fl Immature Gran % (Auto) 0.2 (0-0.5) % Neut % (Auto) 76.7 H (45.5-73.1) % Lymph % (Auto) 14.1 L (18.3-44.2) % Davidson % (Auto) 8.4 (2.6-8.5) % Eos % (Auto) 0.2 (0-4.4) % Baso % (Auto) 0.4 (0.2-1.2) % Lymph # (Auto) 1.42 (0.9-3.2) K/mm3 Davidson # (Auto) 0.9 H (0.1-0.6) K/mm3 Eos # (Auto) 0.0 (0-0.3) K/mm3 Baso # (Auto) 0.0 (0.0-0.1) K/mm3 Abs Immat Gran (auto) 0.02 (0.00-0.031) K/mm3 Absolute Neuts (auto) 7.7 H (1.3-6.7) K/mm3 Absolute Nucleated RBC 0.000 (0.0-0.012) K/mm3 Nucleated RBC % 0.0 (0.0-0.2) % PT 13.7 (11.1-14.7) Seconds INR 1.0 APTT 28.0 (22.3-36.8) Seconds D-Dimer 2.12 H Cancelled (<0.48) ug/mL Sodium 137 (137-145) mmol/L Potassium 3.8 (3.4-5.0) mmol/L Chloride 99 (98-107) mmol/L Carbon Dioxide 29 (22-30) mmol/L Anion Gap 9 (4-12) mmol/L BUN 16 (9-20) mg/dL Creatinine 0.80 (0.7-1.3) mg/dL Estim Creat Clear Calc 100 ml/min Estimated GFR > 60 (59 - ) Glucose 104 (65-110) mg/dL Lactic Acid 2.6 H (0.7-2.0) mmol/L Calcium 8.8 (8.4-10.2) mg/dL Total Creatine Kinase 360 H (55-170) U/L Urine Color Dark yellow (Yellow) Urine Appearance Cloudy H (Clear) Urine pH 8.5 (5.0-9.0) Ur Specific [place] 1.028 (1.001-1.035) Urine Protein 3+ H (Negative) mg/dL Urine Glucose (UA) Negative (Negative) mg/dL Urine Ketones Trace H (Negative) mg/dL Ur Blood (Man) 1+ H (Negative) Urine Nitrate Positive H (Negative) Urine Bilirubin 1+ H (Negative) Urine Urobilinogen 2.0 H (<2.0) mg/dL Add Ur Microanalysis Reviewed Leukocyte Esterase Rfl 2+ H (Negative) LEIDY/UL Urine RBC 21-50 H (0-2) /hpf Urine WBC >100 H (0-3) /hpf Ur Squamous Epith Cells Occasional (Few) /hpf Urine Bacteria 4+ H /hpf Urine Casts 3-5 03/24/24 Range/Units 15:21 WBC (4.5-10.0) K/mm3 RBC (4.6-6.20) M/mm3 Hgb (14.0-18.0) g/dL Hct (42.0-52.0) % MCV (80-100) fl MCH (26-34) pg MCHC (32-36) g/dl RDW (11.5-14.5) % Plt Count (150-375) k/mm3 MPV (7.4-10.4) fl Immature Gran % (Auto) (0-0.5) % Neut % (Auto) (45.5-73.1) % Lymph % (Auto) (18.3-44.2) % [place] % (Auto) (2.6-8.5) % Eos % (Auto) (0-4.4) % Baso % (Auto) (0.2-1.2) % Lymph # (Auto) (0.9-3.2) K/mm3 Davidson # (Auto) (0.1-0.6) K/mm3 Eos # (Auto) (0-0.3) K/mm3 Baso # (Auto) (0.0-0.1) K/mm3 Abs Immat Gran (auto) (0.00-0.031) K/mm3 Absolute Neuts (auto) (1.3-6.7) K/mm3 Absolute Nucleated RBC (0.0-0.012) K/mm3 Nucleated RBC % (0.0-0.2) % PT (11.1-14.7) Seconds INR APTT (22.3-36.8) Seconds D-Dimer (<0.48) ug/mL Sodium (137-145) mmol/L Potassium (3.4-5.0) mmol/L Chloride (98-107) mmol/L Carbon Dioxide (22-30) mmol/L Anion Gap (4-12) mmol/L BUN (9-20) mg/dL Creatinine (0.7-1.3) mg/dL Estim Creat Clear Calc ml/min Estimated GFR (59 - ) Glucose (65-110) mg/dL Lactic Acid 1.8 (0.7-2.0) mmol/L Calcium (8.4-10.2) mg/dL Total Creatine Kinase (55-170) U/L Urine Color (Yellow) Urine Appearance (Clear) Urine pH (5.0-9.0) Ur Specific [place] (1.001-1.035) Urine Protein (Negative) mg/dL Urine Glucose (UA) (Negative) mg/dL Urine Ketones (Negative) mg/dL Ur Blood (Man) (Negative) Urine Nitrate (Negative) Urine Bilirubin (Negative) Urine Urobilinogen (<2.0) mg/dL Add Ur Microanalysis Leukocyte Esterase Rfl (Negative) LEIDY/UL Urine RBC (0-2) /hpf Urine WBC (0-3) /hpf Ur Squamous Epith Cells (Few) /hpf Urine Bacteria /hpf Urine Casts <Tyree Velasco MD - Last Filed: 03/25/24 09:47> Lab Results 03/24/24 03/24/24 03/24/24 Range/Units 11:40 11:40 13:30 WBC 10.1 H (4.5-10.0) K/mm3 RBC 4.46 L (4.6-6.20) M/mm3 Hgb 13.9 L (14.0-18.0) g/dL Hct 39.8 L (42.0-52.0) % MCV 89.2 (80-100) fl MCH 31.2 (26-34) pg MCHC 34.9 (32-36) g/dl RDW 12.8 (11.5-14.5) % Plt Count 247 (150-375) k/mm3 MPV 10.4 (7.4-10.4) fl Immature Gran % (Auto) 0.2 (0-0.5) % Neut % (Auto) 76.7 H (45.5-73.1) % Lymph % (Auto) 14.1 L (18.3-44.2) % [place] % (Auto) 8.4 (2.6-8.5) % Eos % (Auto) 0.2 (0-4.4) % Baso % (Auto) 0.4 (0.2-1.2) % Lymph # (Auto) 1.42 (0.9-3.2) K/mm3 [place] # (Auto) 0.9 H (0.1-0.6) K/mm3 Eos # (Auto) 0.0 (0-0.3) K/mm3 Baso # (Auto) 0.0 (0.0-0.1) K/mm3 Abs Immat Gran (auto) 0.02 (0.00-0.031) K/mm3 Absolute Neuts (auto) 7.7 H (1.3-6.7) K/mm3 Absolute Nucleated RBC 0.000 (0.0-0.012) K/mm3 Nucleated RBC % 0.0 (0.0-0.2) % PT 13.7 (11.1-14.7) Seconds INR 1.0 APTT 28.0 (22.3-36.8) Seconds D-Dimer 2.12 H Cancelled (<0.48) ug/mL Sodium 137 (137-145) mmol/L Potassium 3.8 (3.4-5.0) mmol/L Chloride 99 (98-107) mmol/L Carbon Dioxide 29 (22-30) mmol/L Anion Gap 9 (4-12) mmol/L BUN 16 (9-20) mg/dL Creatinine 0.80 (0.7-1.3) mg/dL Estim Creat Clear Calc 100 ml/min Estimated GFR > 60 (59 - ) Glucose 104 (65-110) mg/dL Lactic Acid 2.6 H (0.7-2.0) mmol/L Calcium 8.8 (8.4-10.2) mg/dL Total Creatine Kinase 360 H (55-170) U/L Urine Color Dark yellow (Yellow) Urine Appearance Cloudy H (Clear) Urine pH 8.5 (5.0-9.0) Ur Specific [place] 1.028 (1.001-1.035) Urine Protein 3+ H (Negative) mg/dL Urine Glucose (UA) Negative (Negative) mg/dL Urine Ketones Trace H (Negative) mg/dL Ur Blood (Man) 1+ H (Negative) Urine Nitrate Positive H (Negative) Urine Bilirubin 1+ H (Negative) Urine Urobilinogen 2.0 H (<2.0) mg/dL Add Ur Microanalysis Reviewed Leukocyte Esterase Rfl 2+ H (Negative) LEIDY/UL Urine RBC 21-50 H (0-2) /hpf Urine WBC >100 H (0-3) /hpf Ur Squamous Epith Cells Occasional (Few) /hpf Urine Bacteria 4+ H /hpf Urine Casts 3-5 03/24/24 Range/Units 15:21 WBC (4.5-10.0) K/mm3 RBC (4.6-6.20) M/mm3 Hgb (14.0-18.0) g/dL Hct (42.0-52.0) % MCV (80-100) fl MCH (26-34) pg MCHC (32-36) g/dl RDW (11.5-14.5) % Plt Count (150-375) k/mm3 MPV (7.4-10.4) fl Immature Gran % (Auto) (0-0.5) % Neut % (Auto) (45.5-73.1) % Lymph % (Auto) (18.3-44.2) % [place] % (Auto) (2.6-8.5) % Eos % (Auto) (0-4.4) % Baso % (Auto) (0.2-1.2) % Lymph # (Auto) (0.9-3.2) K/mm3 [place] # (Auto) (0.1-0.6) K/mm3 Eos # (Auto) (0-0.3) K/mm3 Baso # (Auto) (0.0-0.1) K/mm3 Abs Immat Gran (auto) (0.00-0.031) K/mm3 Absolute Neuts (auto) (1.3-6.7) K/mm3 Absolute Nucleated RBC (0.0-0.012) K/mm3 Nucleated RBC % (0.0-0.2) % PT (11.1-14.7) Seconds INR APTT (22.3-36.8) Seconds D-Dimer (<0.48) ug/mL Sodium (137-145) mmol/L Potassium (3.4-5.0) mmol/L Chloride (98-107) mmol/L Carbon Dioxide (22-30) mmol/L Anion Gap (4-12) mmol/L BUN (9-20) mg/dL Creatinine (0.7-1.3) mg/dL Estim Creat Clear Calc ml/min Estimated GFR (59 - ) Glucose (65-110) mg/dL Lactic Acid 1.8 (0.7-2.0) mmol/L Calcium (8.4-10.2) mg/dL Total Creatine Kinase (55-170) U/L Urine Color (Yellow) Urine Appearance (Clear) Urine pH (5.0-9.0) Ur Specific [place] (1.001-1.035) Urine Protein (Negative) mg/dL Urine Glucose (UA) (Negative) mg/dL Urine Ketones (Negative) mg/dL Ur Blood (Man) (Negative) Urine Nitrate (Negative) Urine Bilirubin (Negative) Urine Urobilinogen (<2.0) mg/dL Add Ur Microanalysis Leukocyte Esterase Rfl (Negative) LEIDY/UL Urine RBC (0-2) /hpf Urine WBC (0-3) /hpf Ur Squamous Epith Cells (Few) /hpf Urine Bacteria /hpf Urine Casts <Osvaldo Vilchis MD - Last Filed: 03/25/24 17:57> Imaging Data Radiologist's impression: ITS Impressions Knee X-Ray 03/24/24 11:32 IMPRESSION: 1. Spiral fracture of the distal left femoral diaphysis with 20 degrees anterior angulation 3 similar proximal migration. Hip/Pelvis X-Ray 03/24/24 11:38 IMPRESSION: 1. Moderate osteoarthritis of the hips. 2. Stones in the bladder. <Tyree Velasco MD - Last Filed: 03/25/24 09:47> Discharge Plan Discharge Clinical Impression: Femur fracture, Paraplegia, unspecified <Cecy Coleman APRN - Last Filed: 03/24/24 11:09> Patient Disposition: Still a Patient <Cecy Coleman APRN - Last Filed: 03/24/24 11:09> Condition: Stable <Cecy Coleman APRN - Last Filed: 03/24/24 11:09> Prescriptions: No Action glucosamine sulfate [Glucosamine] 500 mg Tablet 500 mg PO DAILY Rx Instructions: administer with a meal cholecalciferol (vitamin D3) [Vitamin D3] 125 mcg (5,000 unit) Tablet 125 mcg PO DAILY turmeric 400 mg Capsule 400 mg PO DAILY mecobalamin (vitamin B12) [B12 Active] 1,000 mcg Tablet,Chewable 1,000 mcg PO DAILY oxybutynin chloride 5 mg tablet extended release 24hr See Rx Instructions .ROUTE .COMPLEX Qty: 270 0RF Dose Instruction: TAKE 1 TABLET BY MOUTH THREE TIMES DAILY Rx Instructions: TAKE 1 TABLET BY MOUTH THREE TIMES DAILY.LAST REFILL UNTIL SEEN. baclofen 10 mg tablet 10 mg PO BID Qty: 180 1RF <Cecy Coleman APRN - Last Filed: 03/24/24 11:09> Follow-up/Referrals: Edi Persaud DO [Primary Care Provider] - <Cecy Coleman APRN - Last Filed: 03/24/24 11:09> Time of Disposition: 17:56 <Cecy Coleman APRN - Last Filed: 03/24/24 11:09> 17:56 <Tyree Velasco MD - Last Filed: 03/25/24 09:47> 17:56 <Osvaldo Vilchis MD - Last Filed: 03/25/24 17:57>
[2024-03-24] MEDS: SODIUM CHLORIDE 0.9% IV 1,000 ML 999 ML IV CONT (11:39)
[2024-03-24 11:40] VITALS: BP 116/88; PULSE 97; RESP 20; O2SAT 99
[2024-03-24 11:46] LABS: Basophils Percent Auto 0.4 % (0.2-1.2); Eosinophils Percent Auto 0.2 % (0-4.4); Hematocrit 39.8 % (42.0-52.0); Hemoglobin 13.9 g/dL (14.0-18.0); Immature Granulocyte Absolute 0.02 K/mm3 (0.00-0.031); Immature Granulocyte Percent A 0.2 % (0-0.5); Lymphocytes Absolute Auto 1.42 K/mm3 (0.9-3.2); Lymphocytes Percent Auto 14.1 % (18.3-44.2); Mean Corpuscular HGB Conc 34.9 g/dl (32-36); Mean Corpuscular Hemoglobin 31.2 pg (26-34); Mean Corpuscular Volume 89.2 fl (80-100); Mean Platelet Volume 10.4 fl (7.4-10.4); Monocytes Absolute Auto 0.9 K/mm3 (0.1-0.6); Monocytes Percent Auto 8.4 % (2.6-8.5); Neutrophils Absolute Auto 7.7 K/mm3 (1.3-6.7); Neutrophils Percent Auto 76.7 % (45.5-73.1); Platelet Count Result 247 k/mm3 (150-375); Red Blood Count 4.46 M/mm3 (4.6-6.20); Red Cell Distribution Width 12.8 % (11.5-14.5); White Blood Count 10.1 K/mm3 (4.5-10.0)
[2024-03-24 11:56] LABS: Anion Gap 9 mmol/L (4-12); Blood Urea Nitrogen 16 mg/dL (9-20); Calcium 8.8 mg/dL (8.4-10.2); Carbon Dioxide 29 mmol/L (22-30); Chloride 99 mmol/L (98-107); Creatine Kinase 360 U/L (55-170); Estimated CRCL calculation 100 ml/min; Estimated Glomerular Filt Rate > 60; Glucose 104 mg/dL (65-110); Lactic Acid Reflex 2.6 mmol/L (0.7-2.0); Potassium 3.8 mmol/L (3.4-5.0); Sodium 137 mmol/L (137-145)
[2024-03-24 12:12] LABS: Prothrombin Time 13.7 Seconds (11.1-14.7)
[2024-03-24 12:20] LABS: D Dimer 2.12 ug/mL (<0.48)
[2024-03-24 14:00] VITALS: BP 141/86; PULSE 91; RESP 19; O2SAT 99
[2024-03-24 14:00] LABS: Add Urine Microscopic? YES; Appearance Urine Cloudy (Clear); Bacteria Urine 4+ /hpf; Bilirubin Urine 1+ (Negative); Blood Urine 1+ (Negative); Color Urine Dark Yellow (Yellow); Glucose Urine UA Negative (Negative); Ketones Urine Trace mg/dL (Negative); Leukocyte Esterase Ur 2+ LEU/UL (Negative); Need Manual Microscopic Reviewed; Nitrate Urine Positive (Negative); Protein Urine 3+ mg/dL (Negative); RBC Urine 21-50 /hpf (0-2); Specific Grav Ur 1.028 (1.001-1.035); Squamous Epithelial Cell Urine Occasional /hpf (Few); WBC Urine >100 /hpf (0-3); pH Urine 8.5 (5.0-9.0)
[2024-03-24 14:43] LABS: Reflex Lactic Acid Yes or No Add Lactic
[2024-03-24 15:50] LABS: Lactic Acid 1.8 mmol/L (0.7-2.0)
[2024-03-24 19:56] VITALS: BP 145/59; PULSE 90; RESP 18; TEMP 37.3; O2SAT 99
[2024-03-24] MEDS: BACLOFEN 10 MG TABLET PO (21:45)
[2024-03-24] MEDS: oxyBUTYnin CHLORIDE 5 MG TABLET PO (22:27)
[2024-03-25] VITALS (7 sets, daily range): BP systolic 116–144; BP diastolic 55–79; PULSE 78–96; RESP 14–20; TEMP 36.8–37.2; O2SAT 96–100; BMI 28.2
[2024-03-25] MEDS: diazePAM INJ (*CRX) 10 MG/2 ML SYRINGE 5 MG IV PUSH (00:54)
--- NOTE | 2024-03-25 06:47 | PC.NURSE ---
Pt requesting AM meds to be given around 0800. Meds placed in rounder.
[2024-03-25] MEDS: BACLOFEN 10 MG TABLET PO ×3 (08:30→22:14)
[2024-03-25] MEDS: oxyBUTYnin CHLORIDE 5 MG TABLET PO ×2 (08:31→14:49)
--- NOTE | 2024-03-25 14:28 | PC.NURSE ---
Called pharmacy to send up meds ordered for 1400.
--- NOTE | 2024-03-25 16:37 | PC.NURSE ---
Spoke with [facility] transfer line. Nurse states [facility] is still at capacity. This RN gave recent set of vitals to physician relations representative.
--- NOTE | 2024-03-25 19:10 | ADMGEN ---
This patient, Mickey Coates, was admitted to Medical Room 251-01. Patient/family oriented to hospital policies and general routines including ID bracelet, bed and alarms, visiting hours, pain management, procedures, bathroom and other care routines, personal items, smoking policy, room service/diet, and visiting hours. Information on how to activate the Rapid Response Team has been discussed. Patient/Family are encouraged to report perceived risks to care and to ask questions if they do not understand what they are told or what they should do.
--- NOTE | 2024-03-25 21:35 | PM.IMHP ---
H&P: HPI History of Present Illness Date/Time: 03/25/24 21:35 Chief Complaint: Left knee swelling. 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 The patient provides the following history. On Sunday he was trying to get himself into bed and thinks he may have pulled his leg too far and too hard as he heard a pop. Since that time he has developed swelling in the left knee and into the mid thigh. X-ray showed a spiral fracture of the distal left femoral diaphysis and transfer was initiated to [facility] for Trauma Orthopedics. A bed has yet to become available and he is being admitted to the floor in this setting, pending transfers. He has no complaints at the time my evaluation. On exam he has significant swelling in that left leg in indicates to me that the foot is much more swollen than it was yesterday prior to splinting and wrapping the area. He denies lightheadedness, dizziness, chest pain, pleuritic pain, and shortness of breath. No history of venous thromboembolism. Review of Systems Review of Systems: 12 systems were reviewed and are negative except for as per HPI. [facility] Past Medical History Medical History (Updated 03/26/24 @ 00:21 by Macie Lester PA-C) Obstructive sleep apnea does not use CPAP Paralysis Thoracic spinal cord injury Surgical History Surgical History (Updated 03/26/24 @ 00:21 by Macie Lester PA-C) History of thoracic surgery History of tonsillectomy and adenoidectomy Family History Family History (Updated 03/25/24 @ 19:22 by Mary Beth Alegre RN) Grandparent Acute myocardial infarction Cerebrovascular accident Social History Social History (Updated 03/26/24 @ 00:21 by Macie Lester PA-C) Social History: Surrogate medical decision maker: Marlena Coates, spouse. Code status: Full code. Smoking status: Never smoker Alcohol intake: never Substance use: never Substance use type: does not use Do You Feel Safe in your Home?: Yes Lack of Transportation: No Lack of Food: Never True Current Housing: I Have Housing Concerned About Future Housing: No Difficulty Paying Gas/Electric Bills: No Difficulty Paying for Meds: No Currently Unemployed: No Education: Trade/Vocational Certificate Difficulty w/ Childcare or Family Care: No Living arrangements: with family Additional living arrangements comments: Lives with spouse in [place]. 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 Spiritual care concerns: No Agree to blood products: Yes Meds Home Medications and Allergies Home Medications Medication Instructions Recorded Confirmed Type cholecalciferol (vitamin D3) 125 125 mcg PO DAILY 10/25/22 03/25/24 History mcg (5,000 unit) tablet (Vitamin D3) glucosamine sulfate 500 mg tablet 500 mg PO DAILY 10/25/22 03/25/24 History (Glucosamine) mecobalamin (vitamin B12) 1,000 1,000 mcg PO DAILY 10/25/22 03/25/24 History mcg chewable tablet (B12 Active) turmeric 400 mg capsule 400 mg PO DAILY 10/25/22 03/25/24 History baclofen 10 mg tablet 10 mg PO TID 03/25/24 03/25/24 History oxybutynin chloride 5 mg 5 mg PO BID 03/25/24 03/25/24 History tablet,extended release 24 hr Allergies Allergy/AdvReac Type Severity Reaction Status Date / Time No Known Allergies Allergy Mild Verified 03/25/24 19:35 Vital Signs Vital Signs - 24 hr 03/25/24 02:21 03/25/24 06:49 03/25/24 07:12 Temperature 98.7 F 98.2 F Pulse Rate 78 84 96 Respiratory Rate 18 16 15 Blood Pressure 144/70 H 118/79 124/55 L Pulse Oximetry 100 97 96 03/25/24 08:32 03/25/24 10:57 03/25/24 14:49 Temperature 98.9 F Pulse Rate 90 88 81 Respiratory Rate 16 14 14 Blood Pressure 128/73 134/75 116/67 Pulse Oximetry 96 96 100 03/25/24 19:15 Temperature 98.2 F Pulse Rate 86 Respiratory Rate 20 Blood Pressure 133/69 Pulse Oximetry 96 Exam Narrative: General: Well-developed, nontoxic-appearing gentleman sitting up in bed. Weight: 91.7 kg. BMI: 28.2. HEENT: PERRL, EOMI. Sclera anicteric. Oral mucosa moist. Neck: Supple. Respiratory: Lungs are clear to auscultation bilaterally. Cardiovascular: Regular rate and rhythm with S1-S2. Gastrointestinal: Abdomen is soft, nontender, and nondistended with positive bowel sounds. Skin: Warm and dry. Extremities: No cyanosis or clubbing. Significant pitting edema of the lower leg from the foot up to mid upper thigh. The left leg is casted and wrapped. Neurological: Alert. Cranial nerves 2-12 are grossly intact. Paralysis from mid chest down. Psychiatric: Pleasant and cooperative with normal mood and affect. Judgment and insight intact. H&P: Results Labs Labs: Laboratory Last Values WBC 10.1 K/mm3 (4.5-10.0) H 03/24/24 11:40 RBC 4.46 M/mm3 (4.6-6.20) L 03/24/24 11:40 Hgb 13.9 g/dL (14.0-18.0) L 03/24/24 11:40 Hct 39.8 % (42.0-52.0) L 03/24/24 11:40 MCV 89.2 fl (80-100) 03/24/24 11:40 MCH 31.2 pg (26-34) 03/24/24 11:40 MCHC 34.9 g/dl (32-36) 03/24/24 11:40 RDW 12.8 % (11.5-14.5) 03/24/24 11:40 Plt Count 247 k/mm3 (150-375) 03/24/24 11:40 MPV 10.4 fl (7.4-10.4) 03/24/24 11:40 Immature Gran % (Auto) 0.2 % (0-0.5) 03/24/24 11:40 Neut % (Auto) 76.7 % (45.5-73.1) H 03/24/24 11:40 Lymph % (Auto) 14.1 % (18.3-44.2) L 03/24/24 11:40 [place] % (Auto) 8.4 % (2.6-8.5) 03/24/24 11:40 Eos % (Auto) 0.2 % (0-4.4) 03/24/24 11:40 Baso % (Auto) 0.4 % (0.2-1.2) 03/24/24 11:40 Lymph # (Auto) 1.42 K/mm3 (0.9-3.2) 03/24/24 11:40 [place] # (Auto) 0.9 K/mm3 (0.1-0.6) H 03/24/24 11:40 Eos # (Auto) 0.0 K/mm3 (0-0.3) 03/24/24 11:40 Baso # (Auto) 0.0 K/mm3 (0.0-0.1) 03/24/24 11:40 Abs Immat Gran (auto) 0.02 K/mm3 (0.00-0.031) 03/24/24 11:40 Absolute Neuts (auto) 7.7 K/mm3 (1.3-6.7) H 03/24/24 11:40 Absolute Nucleated RBC 0.000 K/mm3 (0.0-0.012) 03/24/24 11:40 Nucleated RBC % 0.0 % (0.0-0.2) 03/24/24 11:40 PT 13.7 Seconds (11.1-14.7) 03/24/24 11:40 INR 1.0 03/24/24 11:40 APTT 28.0 Seconds (22.3-36.8) 03/24/24 11:40 D-Dimer 2.12 ug/mL (<0.48) H 03/24/24 11:40 D-Dimer Cancelled 03/24/24 11:40 Sodium 137 mmol/L (137-145) 03/24/24 11:40 Potassium 3.8 mmol/L (3.4-5.0) 03/24/24 11:40 Chloride 99 mmol/L (98-107) 03/24/24 11:40 Carbon Dioxide 29 mmol/L (22-30) 03/24/24 11:40 Anion Gap 9 mmol/L (4-12) 03/24/24 11:40 BUN 16 mg/dL (9-20) 03/24/24 11:40 Creatinine 0.80 mg/dL (0.7-1.3) 03/24/24 11:40 Estim Creat Clear Calc 100 ml/min 03/24/24 11:40 Estimated GFR > 60 (59-) 03/24/24 11:40 Glucose 104 mg/dL (65-110) 03/24/24 11:40 Lactic Acid 1.8 mmol/L (0.7-2.0) 03/24/24 15:21 Calcium 8.8 mg/dL (8.4-10.2) 03/24/24 11:40 Total Creatine Kinase 360 U/L (55-170) H 03/24/24 11:40 Urine Color Dark yellow (Yellow) 03/24/24 13:30 Urine Appearance Cloudy (Clear) H 03/24/24 13:30 Urine pH 8.5 (5.0-9.0) 03/24/24 13:30 Ur Specific [place] 1.028 (1.001-1.035) 03/24/24 13:30 Urine Protein 3+ mg/dL (Negative) H 03/24/24 13:30 Urine Glucose (UA) Negative mg/dL (Negative) 03/24/24 13:30 Urine Ketones Trace mg/dL (Negative) H 03/24/24 13:30 Ur Blood (Man) 1+ (Negative) H 03/24/24 13:30 Urine Nitrate Positive (Negative) H 03/24/24 13:30 Urine Bilirubin 1+ (Negative) H 03/24/24 13:30 Urine Urobilinogen 2.0 mg/dL (<2.0) H 03/24/24 13:30 Add Ur Microanalysis Reviewed 03/24/24 13:30 Leukocyte Esterase Rfl 2+ LEIDY/UL (Negative) H 03/24/24 13:30 Urine RBC 21-50 /hpf (0-2) H 03/24/24 13:30 Urine WBC >100 /hpf (0-3) H 03/24/24 13:30 Ur Squamous Epith Cells Occasional /hpf (Few) 03/24/24 13:30 Urine Bacteria 4+ /hpf H 03/24/24 13:30 Urine Casts 3-5 03/24/24 13:30 ITS Impressions Knee X-Ray 03/24/24 11:32 IMPRESSION: 1. Spiral fracture of the distal left femoral diaphysis with 20 degrees anterior angulation 3 similar proximal migration. Hip/Pelvis X-Ray 03/24/24 11:38 IMPRESSION: 1. Moderate osteoarthritis of the hips. 2. Stones in the bladder. Assessment and Plan Assessment and plan (1) Fracture of distal end of left femur: Code(s): S72.402A - Unspecified fracture of lower end of left femur, initial encounter for closed fracture Status: Acute (2) Edema of left lower leg: Code(s): R60.0 - Localized edema Status: Acute (3) Paraplegia, unspecified: Code(s): G82.20 - Paraplegia, unspecified Status: Acute Plan The patient presented to the emergency department yesterday for evaluation of left knee swelling as detailed in HPI. Labs, imaging, EKG, and all reports were personally reviewed. He has a spiral fracture of the distal femur for which our orthopedic surgeons have recommended transfer to a tertiary care facility. He has been excepted at [facility] however bed not yet become available. He will be admitted to the medical floor pending transfer. Left lower extremity venous Doppler ultrasound ordered to rule out DVT given significant swelling which may be related to the injury and tight Bertrand wrap however he has risk factors for DVT including baseline paraplegia and now a long bone fracture. His home medications will be reviewed and resumed as appropriate. Findings and treatment plan were discussed with the patient. Questions were solicited and answered to satisfaction. The patient's medical management will be taken over by the hospitalist team in a.m. Quality VTE Prophylaxis VTE prophylaxis: pharmacologic ordered The patient has been admitted under observation status. Hospitalist MIPS Advance Care Plan I have confirmed that the patient's Advanced Care Plan is present, code status is documented, or surrogate decision maker is listed in patient medical record.: Yes Medication Reconciliation I have utilized all available resources to obtain, update and review the patients current medications (includes all prescriptions, OTC, herbals, cannabis, and nutritional supplements).: Yes
[2024-03-25] MEDS: HYDROcodone/acetaminophen (*CRX) 5-325 MG TABLET 1 TAB PO (21:46)
[2024-03-26 05:30] VITALS: BP 130/75; PULSE 77; RESP 18; TEMP 36.6; O2SAT 99
[2024-03-26] MEDS: BACLOFEN 10 MG TABLET PO ×3 (06:02→21:47)
[2024-03-26 06:25] LABS: Basophils Percent Auto 0.4 % (0.2-1.2); Eosinophils Absolute Auto 0.2 K/mm3 (0-0.3); Eosinophils Percent Auto 2.4 % (0-4.4); Hemoglobin 12.2 g/dL (14.0-18.0); Immature Granulocyte Absolute 0.02 K/mm3 (0.00-0.031); Immature Granulocyte Percent A 0.3 % (0-0.5); Mean Corpuscular Hemoglobin 30.3 pg (26-34); Mean Corpuscular Volume 91.8 fl (80-100); Mean Platelet Volume 10.4 fl (7.4-10.4); Monocytes Absolute Auto 0.5 K/mm3 (0.1-0.6); Monocytes Percent Auto 7.2 % (2.6-8.5); Neutrophils Absolute Auto 4.6 K/mm3 (1.3-6.7); Neutrophils Percent Auto 66.7 % (45.5-73.1); Platelet Count Result 215 k/mm3 (150-375); Red Blood Count 4.03 M/mm3 (4.6-6.20); Red Cell Distribution Width 12.8 % (11.5-14.5)
[2024-03-26 06:31] LABS: Anion Gap 10 mmol/L (4-12); Blood Urea Nitrogen 13 mg/dL (9-20); Calcium 8.4 mg/dL (8.4-10.2); Carbon Dioxide 26 mmol/L (22-30); Chloride 101 mmol/L (98-107); Creatine Kinase 246 U/L (55-170); Estimated CRCL calculation 130 ml/min; Estimated Glomerular Filt Rate > 60; Glucose 105 mg/dL (65-110); Potassium 3.7 mmol/L (3.4-5.0); Sodium 137 mmol/L (137-145)
[2024-03-26] MEDS: CHOLECALCIFEROL 5,000 UNITS TABLET 5000 UNITS BY MOUTH (08:13)
[2024-03-26] MEDS: CYANOCOBALAMIN 1,000 MCG TABLET 1000 MCG PO (08:13)
[2024-03-26] MEDS: oxyBUTYnin CHLORIDE XL 5 MG TAB.ER.24 PO ×2 (08:14→16:59)
[2024-03-26] MEDS: ENOXAPARIN 40 MG/0.4 ML SYRINGE SUB-Q (08:14)
--- NOTE | 2024-03-26 08:39 | PM.IMPN ---
Progress Note: A&P Assessment and Plan (1) Fracture of distal end of left femur: Code(s): S72.402A - Unspecified fracture of lower end of left femur, initial encounter for closed fracture Status: Acute Assessment and Plan: Knee XR: Spiral fracture of the distal left femoral diaphysis with 20 degrees anterior angulation 3 similar proximal migration. - Per chart review, Orthopedic surgeon Dr. Tpaia was consulted and recommended transfer to a tertiary care facility. - ED provider discussed case with orthopedic surgeon Dr. Reyes at [facility]. Per Dr. Reyes recommendations patient was placed in a long-leg posterior splint for comfort - Patient has been accepted at [facility] under hospitalist Dr. Aguayo however bed not yet available. He will be admitted to the medical floor pending transfer. 03/26: Patient states that his left lower extremity appears to be more angled out today compared to yesterday after having his venous duplex performed during which they had to move his long-leg splint. Due to patient's paraplegia he is unable to say if there is any change in sensation or pain in relation to the fracture. Will obtain a x-ray to re-evaluate and ensure the fracture has not moved. (2) Edema of left lower leg: Code(s): R60.0 - Localized edema Status: Acute Assessment and Plan: Patient has significant swelling which may be related to the injury and tight Bertrand wrap however he has risk factors for DVT including baseline paraplegia and now a long bone fracture. - Left lower extremity venous Doppler US: negative - Monitor (3) Paraplegia, unspecified: Code(s): G82.20 - Paraplegia, unspecified Status: Acute Assessment and Plan: Hx of complete spinal cord injury at T4 through T6. 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 X-ray showed a spiral fracture of the distal left femoral diaphysis and transfer was initiated to [facility] for Trauma Orthopedics. A bed has yet to become available and he is being admitted to the floor in this setting, pending transfers. patient is pleasant lying comfortably in bed. He states that his left lower extremity appears to be more angled out today compared to yesterday after having his venous duplex performed during which they had to move his long-leg splint. Due to patient's paraplegia he is unable to say if there is any change in sensation or pain in relation to the fracture. Will obtain a x-ray to re-evaluate and ensure the fracture has not moved. Patient remains inpatient at this time pending transfer to slu. He has no complaints, denying chest pain, shortness of breath, nausea/vomiting and abdominal pain. Review of Systems Review of Systems: All systems reviewed & are unremarkable except as noted in HPI and below Exam Narrative: AF HR 80 RR 12 SpO2 98 BP 131/69 General: male in no acute respiratory distress who is nontoxic appearing, lying semi recumbent in bed. HEENT: Normocephalic. Atraumatic. Extraocular movement intact. Sclera clear and anicteric. No facial asymmetry. Chest: Lungs are clear to auscultation bilaterally. No wheezes or crackles. CV: Heart was regular rate and rhythm. S1/S2. No murmurs, gallops, or rubs. Abd: Abdomen was soft. Nontender. Nondistended. Positive bowel sounds. No organomegaly or masses. Ext: 2+ pitting edema to the Left foot with long leg splint in place. Patients left foot is externally rotated. No clubbing, cyanosis. 2+ DP pulses bilaterally. Neuro: Patient is alert and oriented x4. Speech is clear. Objective Data Vital Signs Vital Signs: Vital Signs - 24 hr 03/25/24 10:57 03/25/24 14:49 03/25/24 19:15 Temperature 98.9 F 98.2 F Pulse Rate 88 81 86 Respiratory Rate 14 14 20 Blood Pressure 134/75 116/67 133/69 Pulse Oximetry 96 100 96 Oxygen Delivery 03/25/24 20:00 03/26/24 05:30 Temperature 97.8 F Pulse Rate 77 Respiratory Rate 18 Blood Pressure 130/75 Pulse Oximetry 99 Oxygen Delivery Room Air Intake/Output Intake/Output: Intake & Output 03/23/24 03/24/24 03/25/24 03/26/24 23:59 23:59 23:59 23:59 Intake Total 1000 490 Output Total 400 300 Balance 1000 -400 190 Meds/Results Medications: Active Medications Generic Name Dose Route Start Last Admin Trade Name Freq PRN Reason Stop Dose Admin Acetaminophen 650 mg 03/25/24 17:58 Acetaminophen 325 Mg Tablet PO Q4H PRN Mild Pain (1-3) or Fever Hydrocodone Bitart/Acetaminophen 1 tab 03/25/24 17:58 03/25/24 21:46 Hydrocodone/Acetaminophen (*Crx) 5-325 Mg Tablet PO 1 tab Q4H PRN Administration Pain Rated 4-6 Baclofen 10 mg 03/24/24 22:00 03/26/24 06:02 Baclofen 10 Mg Tablet PO 10 mg Q8HR JAI Administration Cyanocobalamin 1,000 mcg 03/26/24 09:00 03/26/24 08:13 Cyanocobalamin 1,000 Mcg Tablet PO 1,000 mcg QAM [facility] Administration Enoxaparin Sodium 40 mg 03/26/24 09:00 03/26/24 08:14 Enoxaparin 40 Mg/0.4 Ml Syringe SUB-Q 40 mg DAILY [facility] Administration Morphine Sulfate 2 mg 03/25/24 17:58 Morphine Sulfate (*Crx) 2 Mg/Ml Inj IV PUSH Q2H PRN Pain Rated 7-10 Non-Formulary Medication 500 mg 03/26/24 09:00 Glucosamine Sulfate [Glucosamine] PO 04/25/24 08:59 DAILY [facility] Ondansetron HCl 4 mg 03/25/24 17:58 Ondansetron Inj 4 Mg/2 Ml Vial IV PUSH Q4H PRN Nausea Oxybutynin Chloride 5 mg 03/26/24 09:00 03/26/24 08:14 Oxybutynin Chloride Xl 5 Mg Tab.Er.24 PO 5 mg BID [facility] Administration Vitamin D 5,000 units 03/26/24 09:00 03/26/24 08:13 Cholecalciferol 5,000 Units Tablet BY MOUTH 5,000 units DAILY [facility] Administration Radiology Results: ITS Impressions Knee X-Ray 03/24/24 11:32 IMPRESSION: 1. Spiral fracture of the distal left femoral diaphysis with 20 degrees anterior angulation 3 similar proximal migration. Hip/Pelvis X-Ray 03/24/24 11:38 IMPRESSION: 1. Moderate osteoarthritis of the hips. 2. Stones in the bladder. Venous Doppler Study 03/25/24 22:33 IMPRESSION: No evidence of deep venous thrombosis in the visualized lower extremity veins. Labs Labs: Laboratory Results - last 24 hr 03/26/24 05:52 WBC 7.0 RBC 4.03 L Hgb 12.2 L Hct 37.0 L MCV 91.8 MCH 30.3 MCHC 33.0 RDW 12.8 Plt Count 215 MPV 10.4 Immature Gran % (Auto) 0.3 Neut % (Auto) 66.7 Lymph % (Auto) 23.0 [place] % (Auto) 7.2 Eos % (Auto) 2.4 Baso % (Auto) 0.4 Lymph # (Auto) 1.60 [place] # (Auto) 0.5 Eos # (Auto) 0.2 Baso # (Auto) 0.0 Abs Immat Gran (auto) 0.02 Absolute Neuts (auto) 4.6 Absolute Nucleated RBC 0.000 Nucleated RBC % 0.0 Sodium 137 Potassium 3.7 Chloride 101 Carbon Dioxide 26 Anion Gap 10 BUN 13 Creatinine 0.60 L Estim Creat Clear Calc 130 Estimated GFR > 60 Glucose 105 Calcium 8.4 Total Creatine Kinase 246 H Quality VTE Prophylaxis VTE prophylaxis: pharmacologic ordered
[2024-03-26 08:54] VITALS: O2SAT 96
[2024-03-26 14:00] VITALS: BP 131/69; PULSE 80; RESP 12; TEMP 36.9; O2SAT 98
[2024-03-26 20:17] VITALS: BP 127/70; PULSE 79; RESP 18; TEMP 37.4; O2SAT 99
[2024-03-27 05:50] VITALS: BP 130/51; PULSE 78; RESP 20; TEMP 36.7; O2SAT 98
[2024-03-27] MEDS: BACLOFEN 10 MG TABLET PO ×3 (05:58→21:35)
--- NOTE | 2024-03-27 07:43 | P.PNIM_ITS ---
Progress Note: A&P Assessment and Plan (1) Fracture of distal end of left femur: Code(s): S72.402A - Unspecified fracture of lower end of left femur, initial encounter for closed fracture Status: Acute Assessment and Plan: Knee XR: Spiral fracture of the distal left femoral diaphysis with 20 degrees anterior angulation 3 similar proximal migration. - Per chart review, Orthopedic surgeon Dr. Tapia was consulted and recommended transfer to a tertiary care facility. - ED provider discussed case with orthopedic surgeon Dr. Reyes at [facility]. Per Dr. Reyes recommendations patient was placed in a long-leg posterior splint for comfort - Patient has been accepted at [facility] under hospitalist Dr. Aguayo however bed not yet available. He will be admitted to the medical floor pending transfer. 03/26: Patient states that his left lower extremity appears to be more angled out today compared to yesterday after having his venous duplex performed during which they had to move his long-leg splint. Due to patient's paraplegia he is unable to say if there is any change in sensation or pain in relation to the fracture. Will obtain a x-ray to re-evaluate and ensure the fracture has not moved. - Femur XR repeat: Spiral fracture of the left femoral midshaft with mild anterolateral displacement/angulation and mild overlap. 03/27: Patients pulses remain strong. He remains in the long leg splint and awaits transfer to [facility]. (2) Edema of left lower leg: Code(s): R60.0 - Localized edema Status: Acute Assessment and Plan: Patient has significant swelling which may be related to the injury and tight Bertrand wrap however he has risk factors for DVT including baseline paraplegia and now a long bone fracture. 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 Time Spent With Patient Time with patient: 25 - 35 minutes Subjective Date/time seen: 03/27/24 07:43 Interval history: 53-year-old male with history of complete spinal cord injury at T4 through T6 who presented to the hospital for evaluation left knee swelling. X-ray showed a spiral fracture of the distal left femoral diaphysis and transfer was initiated to [facility] for Trauma Orthopedics. A bed has yet to become available and he is being admitted to the floor in this setting, pending transfers. Patient is pleasant lying comfortably in bed. He has not had a bowel movement since admission. He uses digital stimulation at home, however he is unable to do this due to the long leg splint. Ordered senna PO and bisacodyl suppository. He denies chest pain, shortness of breath, nausea/vomiting and abdominal pain. Review of Systems Review of Systems: All systems reviewed & are unremarkable except as noted in HPI and below Exam Narrative: AF HR 78 RR 20 Spo2 98 BP 130/51 General: male in no acute respiratory distress who is nontoxic appearing, lying semi recumbent in bed. HEENT: Normocephalic. Atraumatic. Extraocular movement intact. Sclera clear and anicteric. No facial asymmetry. Chest: Lungs are clear to auscultation bilaterally. No wheezes or crackles. CV: Heart was regular rate and rhythm. S1/S2. No murmurs, gallops, or rubs. Abd: Abdomen was soft. Nontender. Nondistended. Positive bowel sounds. No organomegaly or masses. Ext: 2+ pitting edema to the Left foot with long leg splint in place. No clubbi ng, cyanosis. 2+ DP pulses bilaterally. Neuro: Patient is alert and oriented x4. Speech is clear. Objective Data Vital Signs Vital Signs: Vital Signs - 24 hr 03/26/24 08:54 03/26/24 08:00 03/26/24 14:00 Temperature 98.5 F Pulse Rate 80 Respiratory Rate 12 Blood Pressure 131/69 Pulse Oximetry 96 98 Oxygen Delivery Room Air Room Air 03/26/24 20:17 03/26/24 20:00 03/27/24 05:50 Temperature 99.3 F 98.0 F Pulse Rate 79 78 Respiratory Rate 18 20 Blood Pressure 127/70 130/51 L Pulse Oximetry 99 98 Oxygen Delivery Room Air Intake/Output Intake/Output: Intake & Output 03/24/24 03/25/24 03/26/24 03/27/24 23:59 23:59 23:59 23:59 Intake Total 1000 1860 400 Output Total 400 1800 300 Balance 1000 -400 60 100 Meds/Results Medications: Active Medications Generic Name Dose Route Start Last Admin Trade Name Freq PRN Reason Stop Dose Admin Acetaminophen 650 mg 03/25/24 17:58 Acetaminophen 325 Mg Tablet PO Q4H PRN Mild Pain (1-3) or Fever Hydrocodone Bitart/Acetaminophen 1 tab 03/25/24 17:58 03/25/24 21:46 Hydrocodone/Acetaminophen (*Crx) 5-325 Mg Tablet PO 1 tab Q4H PRN Administration Pain Rated 4-6 Baclofen 10 mg 03/24/24 22:00 03/27/24 05:58 Baclofen 10 Mg Tablet PO 10 mg Q8HR JAI Administration Cyanocobalamin 1,000 mcg 03/26/24 09:00 03/26/24 08:13 Cyanocobalamin 1,000 Mcg Tablet PO 1,000 mcg QAM [facility] Administration Enoxaparin Sodium 40 mg 03/26/24 09:00 03/26/24 08:14 Enoxaparin 40 Mg/0.4 Ml Syringe SUB-Q 40 mg DAILY [facility] Administration Morphine Sulfate 2 mg 03/25/24 17:58 Morphine Sulfate (*Crx) 2 Mg/Ml Inj IV PUSH Q2H PRN Pain Rated 7-10 Non-Formulary Medication 500 mg 03/26/24 09:00 Glucosamine Sulfate [Glucosamine] PO 04/25/24 08:59 DAILY [facility] Ondansetron HCl 4 mg 03/25/24 17:58 Ondansetron Inj 4 Mg/2 Ml Vial IV PUSH Q4H PRN Nausea Oxybutynin Chloride 5 mg 03/26/24 09:00 03/26/24 16:59 Oxybutynin Chloride Xl 5 Mg Tab.Er.24 PO 5 mg BID [facility] Administration Vitamin D 5,000 units 03/26/24 09:00 03/26/24 08:13 Cholecalciferol 5,000 Units Tablet BY MOUTH 5,000 units DAILY [facility] Administration Radiology Results: ITS Impressions Knee X-Ray 03/24/24 11:32 IMPRESSION: 1. Spiral fracture of the distal left femoral diaphysis with 20 degrees anterior angulation 3 similar proximal migration. Hip/Pelvis X-Ray 03/24/24 11:38 IMPRESSION: 1. Moderate osteoarthritis of the hips. 2. Stones in the bladder. Venous Doppler Study 03/25/24 22:33 IMPRESSION: No evidence of deep venous thrombosis in the visualized lower extremity veins. Femur X-Ray 03/26/24 18:32 IMPRESSION: Spiral fracture of the left femoral midshaft with mild anterolateral displacement/angulation and mild overlap. Quality VTE Prophylaxis VTE prophylaxis: pharmacologic ordered
[2024-03-27 08:41] LABS: Basophils Percent Auto 0.5 % (0.2-1.2); Eosinophils Absolute Auto 0.2 K/mm3 (0-0.3); Eosinophils Percent Auto 3.3 % (0-4.4); Hematocrit 33.1 % (42.0-52.0); Hemoglobin 11.4 g/dL (14.0-18.0); Immature Granulocyte Absolute 0.02 K/mm3 (0.00-0.031); Immature Granulocyte Percent A 0.3 % (0-0.5); Lymphocytes Absolute Auto 1.15 K/mm3 (0.9-3.2); Lymphocytes Percent Auto 20.1 % (18.3-44.2); Mean Corpuscular HGB Conc 34.4 g/dl (32-36); Mean Corpuscular Hemoglobin 30.7 pg (26-34); Mean Corpuscular Volume 89.2 fl (80-100); Mean Platelet Volume 10.3 fl (7.4-10.4); Monocytes Absolute Auto 0.4 K/mm3 (0.1-0.6); Monocytes Percent Auto 6.3 % (2.6-8.5); Neutrophils Percent Auto 69.5 % (45.5-73.1); Platelet Count Result 246 k/mm3 (150-375); Red Blood Count 3.71 M/mm3 (4.6-6.20); Red Cell Distribution Width 12.7 % (11.5-14.5); White Blood Count 5.7 K/mm3 (4.5-10.0)
[2024-03-27 08:54] LABS: Alanine Aminotransferase 18 U/L (6-50); Albumin Level 3.7 g/dL (3.5-5.1); Alkaline Phosphatase 54 U/L (38-126); Anion Gap 8 mmol/L (4-12); Aspartate Amino Transferase 20 U/L (17-59); Bilirubin,Total 1.5 mg/dL (0.2-1.3); Blood Urea Nitrogen 11 mg/dL (9-20); Calcium 8.6 mg/dL (8.4-10.2); Carbon Dioxide 27 mmol/L (22-30); Chloride 101 mmol/L (98-107); Estimated CRCL calculation 130 ml/min; Estimated Glomerular Filt Rate > 60; Glucose 98 mg/dL (65-110); Potassium 3.9 mmol/L (3.4-5.0); Sodium 136 mmol/L (137-145)
[2024-03-27] MEDS: oxyBUTYnin CHLORIDE XL 5 MG TAB.ER.24 PO ×2 (09:17→16:43)
[2024-03-27] MEDS: BISACODYL 10 MG SUPPOSITORY RECTAL (09:17)
[2024-03-27] MEDS: CYANOCOBALAMIN 1,000 MCG TABLET 1000 MCG PO (09:17)
[2024-03-27] MEDS: CHOLECALCIFEROL 5,000 UNITS TABLET 5000 UNITS BY MOUTH (09:17)
[2024-03-27] MEDS: ENOXAPARIN 40 MG/0.4 ML SYRINGE SUB-Q (09:17)
[2024-03-27 09:43] VITALS: O2SAT 97
--- NOTE | 2024-03-27 11:42 | PC.NURSE ---
Pt requested a flu shot. KAMILA Leon aware and is ok with pt receiving. Injection given IM in right Deltoid. Patient tolerated well.
[2024-03-27 14:00] VITALS: BP 160/88; PULSE 82; RESP 18; TEMP 36.7; O2SAT 99
[2024-03-27 20:52] VITALS: BP 125/63; PULSE 76; RESP 24; TEMP 37.6; O2SAT 100
[2024-03-27] MEDS: SENNA/DOCUSATE SODIUM TABLET 1 TAB PO (21:35)
[2024-03-28 05:48] LABS: Basophils Percent Auto 0.6 % (0.2-1.2); Eosinophils Absolute Auto 0.3 K/mm3 (0-0.3); Eosinophils Percent Auto 3.8 % (0-4.4); Hematocrit 36.8 % (42.0-52.0); Hemoglobin 12.3 g/dL (14.0-18.0); Immature Granulocyte Absolute 0.02 K/mm3 (0.00-0.031); Immature Granulocyte Percent A 0.3 % (0-0.5); Lymphocytes Absolute Auto 1.59 K/mm3 (0.9-3.2); Lymphocytes Percent Auto 24.5 % (18.3-44.2); Mean Corpuscular HGB Conc 33.4 g/dl (32-36); Mean Corpuscular Hemoglobin 30.2 pg (26-34); Mean Corpuscular Volume 90.4 fl (80-100); Mean Platelet Volume 9.5 fl (7.4-10.4); Monocytes Absolute Auto 0.4 K/mm3 (0.1-0.6); Neutrophils Absolute Auto 4.2 K/mm3 (1.3-6.7); Neutrophils Percent Auto 64.8 % (45.5-73.1); Platelet Count Result 341 k/mm3 (150-375); Red Blood Count 4.07 M/mm3 (4.6-6.20); Red Cell Distribution Width 12.9 % (11.5-14.5); White Blood Count 6.5 K/mm3 (4.5-10.0)
[2024-03-28] MEDS: BACLOFEN 10 MG TABLET PO ×3 (05:53→21:23)
[2024-03-28 06:00] VITALS: BP 143/95; PULSE 66; RESP 20; TEMP 36.7; O2SAT 96
[2024-03-28 06:01] LABS: Alanine Aminotransferase 18 U/L (6-50); Alkaline Phosphatase 54 U/L (38-126); Anion Gap 10 mmol/L (4-12); Aspartate Amino Transferase 23 U/L (17-59); Bilirubin,Total 1.8 mg/dL (0.2-1.3); Blood Urea Nitrogen 11 mg/dL (9-20); Calcium 8.7 mg/dL (8.4-10.2); Carbon Dioxide 28 mmol/L (22-30); Chloride 99 mmol/L (98-107); Estimated CRCL calculation 130 ml/min; Estimated Glomerular Filt Rate > 60; Glucose 97 mg/dL (65-110); Potassium 3.7 mmol/L (3.4-5.0); Sodium 137 mmol/L (137-145)
--- NOTE | 2024-03-28 08:02 | PM.IMPN ---
Progress Note: A&P Assessment and Plan (1) Fracture of distal end of left femur: Code(s): S72.402A - Unspecified fracture of lower end of left femur, initial encounter for closed fracture Status: Acute Assessment and Plan: Knee XR: Spiral fracture of the distal left femoral diaphysis with 20 degrees anterior angulation 3 similar proximal migration. - Per chart review, Orthopedic surgeon Dr. Tapia was consulted and recommended transfer to a tertiary care facility. - ED provider discussed case with orthopedic surgeon Dr. Reyes at [facility]. Per Dr. Reyes recommendations patient was placed in a long-leg posterior splint for comfort - Patient has been accepted at [facility] under hospitalist Dr. Aguayo however bed not yet available. He will be admitted to the medical floor pending transfer. 03/26: Patient states that his left lower extremity appears to be more angled out today compared to yesterday after having his venous duplex performed during which they had to move his long-leg splint. Due to patient's paraplegia he is unable to say if there is any change in sensation or pain in relation to the fracture. Will obtain a x-ray to re-evaluate and ensure the fracture has not moved. - Femur XR repeat: Spiral fracture of the left femoral midshaft with mild anterolateral displacement/angulation and mild overlap. 03/28: Patient endorses worsening muscle spasms. Remains on baclofen and started on flexaril. He has no signs of pressure injury development. Pulses remain strong. Call made to [facility] transfer center at 0800 to get an update on patient and they state that [facility] is still at capacity and are unsure when transfer will be available. Call made to [place] [facility] [place] at 1430. Sp[address] with [address] Beasley (trauma) who states that this is more an ortho issue given there was no trauma and has been several days since the incident. Waiting for call back from [facility]. Call made to [facility] at 1450. Per their transfer center they are unable to accept patient given his need for a tertiary facility. (2) Edema of left lower leg: Code(s): R60.0 - Localized edema Status: Acute Assessment and Plan: Patient has significant swelling which may be related to the injury and tight Bertrand wrap however he has risk factors for DVT including baseline paraplegia and now a long bone fracture. 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 Time Spent With Patient Time with patient: 25 - 35 minutes Subjective Date/time seen: 03/28/24 08:02 Interval history: 53-year-old male with history of complete spinal cord injury at T4 through T6 who presented to the hospital for evaluation left knee swelling. X-ray showed a spiral fracture of the distal left femoral diaphysis and transfer was initiated to [facility] Tra[facility] Orthoped[facility]. A bed has yet to become available and he is being admitted to the floor in this setting, pending transfers. patient is pleasant lying comfortably in bed. He endorses severe muscle spasms on his current dose of baclofen. Will start him on flexaril. Patient denies chest pain, shortness of breath, nausea/vomiting and abdominal pain. Call made to [facility] transfer center at 0800 to get an update on patient and they state that [facility] is still at capacity and are unsure when transfer will be available. Call made to [place] transfer center at 1430 awaiting call back. Spoke with Dr. Beasley (trauma) who states that this is more an ortho issue given there was no trauma and has been several days since the incident. Waiting for call back from ortho. Call made to [facility] transfer center at 1450. Per their transfer center they are unable to accept patient given his need for a tertiary facility. Review of Systems Review of Systems: All systems reviewed & are unremarkable except as noted in HPI and below Exam Narrative: AF HR 66 RR 20 Spo2 96 BP 143/95 General: male in no acute respiratory distress who is nontoxic appearing, lying semi recumbent in bed. HEENT: Normocephalic. Atraumatic. Extraocular movement intact. Sclera clear and anicteric. No facial asymmetry. Chest: Lungs are clear to auscultation bilaterally. No wheezes or crackles. CV: Heart was regular rate and rhythm. S1/S2. No murmurs, gallops, or rubs. Abd: Abdomen was soft. Nontender. Nondistended. Positive bowel sounds. No organomegaly or masses. Ext: 2+ pitting edema to the Left foot with long leg splint in place. No clubbing, cyanosis. 2+ DP pulses bilaterally. No wounds forming. Neuro: Patient is alert and oriented x4. Speech is clear. Objective Data Vital Signs Vital Signs: Vital Signs - 24 hr 03/27/24 09:43 03/27/24 14:00 03/27/24 20:52 Temperature 98.1 F 99.6 F Pulse Rate 82 76 Respiratory Rate 18 24 H Blood Pressure 160/88 H 125/63 Pulse Oximetry 97 99 100 Oxygen Delivery Room Air 03/27/24 21:35 03/28/24 06:00 Temperature 98.0 F Pulse Rate 66 Respiratory Rate 20 Blood Pressure 143/95 H Pulse Oximetry 96 Oxygen Delivery Room Air Intake/Output Intake/Output: Intake & Output 03/25/24 03/26/24 03/27/24 03/28/24 23:59 23:59 23:59 23:59 Intake Total 1860 1560 400 Output Total 400 1800 800 700 Balance -400 60 760 -300 Meds/Results Medications: Active Medications Generic Name Dose Route Start Last Admin Trade Name Freq PRN Reason Stop Dose Admin Acetaminophen 650 mg 03/25/24 17:58 Acetaminophen 325 Mg Tablet PO Q4H PRN Mild Pain (1-3) or Fever Hydrocodone Bitart/Acetaminophen 1 tab 03/25/24 17:58 03/25/24 21:46 Hydrocodone/Acetaminophen (*Crx) 5-325 Mg Tablet PO 1 tab Q4H PRN Administration Pain Rated 4-6 Baclofen 10 mg 03/24/24 22:00 03/28/24 05:53 Baclofen 10 Mg Tablet PO 10 mg Q8HR JAI Administration Bisacodyl 10 mg 03/27/24 09:00 03/27/24 09:17 Bisacodyl 10 Mg Suppository RECTAL 10 mg QAM JAI Administration Cyanocobalamin 1,000 mcg 03/26/24 09:00 03/27/24 09:17 Cyanocobalamin 1,000 Mcg Tablet PO 1,000 mcg QAM JAI Administration Enoxaparin Sodium 40 mg 03/26/24 09:00 03/27/24 09:17 Enoxaparin 40 Mg/0.4 Ml Syringe SUB-Q 40 mg DAILY JAI Administration Morphine Sulfate 2 mg 03/25/24 17:58 Morphine Sulfate (*Crx) 2 Mg/Ml Inj IV PUSH Q2H PRN Pain Rated 7-10 Ondansetron HCl 4 mg 03/25/24 17:58 Ondansetron Inj 4 Mg/2 Ml Vial IV PUSH Q4H PRN Nausea Oxybutynin Chloride 5 mg 03/26/24 09:00 03/27/24 16:43 Oxybutynin Chloride Xl 5 Mg Tab.Er.24 PO 5 mg BID JAI Administration Senna/Docusate Sodium 1 tab 03/27/24 21:00 03/27/24 21:35 Senna/Docusate Sodium Tablet PO 1 tab HS JAI Administration Vitamin D 5,000 units 03/26/24 09:00 03/27/24 09:17 Cholecalciferol 5,000 Units Tablet BY MOUTH 5,000 units DAILY JAI Administration Radiology Results: ITS Impressions Knee X-Ray 03/24/24 11:32 IMPRESSION: 1. Spiral fracture of the distal left femoral diaphysis with 20 degrees anterior angulation 3 similar proximal migration. Hip/Pelvis X-Ray 03/24/24 11:38 IMPRESSION: 1. Moderate osteoarthritis of the hips. 2. Stones in the bladder. Venous Doppler Study 03/25/24 22:33 IMPRESSION: No evidence of deep venous thrombosis in the visualized lower extremity veins. Femur X-Ray 03/26/24 18:32 IMPRESSION: Spiral fracture of the left femoral midshaft with mild anterolateral displacement/angulation and mild overlap. Labs Labs: Laboratory Results - last 24 hr 03/27/24 03/28/24 08:13 05:31 WBC 5.7 6.5 RBC 3.71 L 4.07 L Hgb 11.4 L 12.3 L Hct 33.1 L 36.8 L MCV 89.2 90.4 MCH 30.7 30.2 MCHC 34.4 33.4 RDW 12.7 12.9 Plt Count 246 341 MPV 10.3 9.5 Immature Gran % (Auto) 0.3 0.3 Neut % (Auto) 69.5 64.8 Lymph % (Auto) 20.1 24.5 [place] % (Auto) 6.3 6.0 Eos % (Auto) 3.3 3.8 Baso % (Auto) 0.5 0.6 Lymph # (Auto) 1.15 1.59 [place] # (Auto) 0.4 0.4 Eos # (Auto) 0.2 0.3 Baso # (Auto) 0.0 0.0 Abs Immat Gran (auto) 0.02 0.02 Absolute Neuts (auto) 4.0 4.2 Absolute Nucleated RBC 0.000 0.000 Nucleated RBC % 0.0 0.0 Sodium 136 L 137 Potassium 3.9 3.7 Chloride 101 99 Carbon Dioxide 27 28 Anion Gap 8 10 BUN 11 11 Creatinine 0.60 L 0.60 L Estim Creat Clear Calc 130 130 Estimated GFR > 60 > 60 Glucose 98 97 Calcium 8.6 8.7 Total Bilirubin 1.5 H 1.8 H AST 20 23 ALT 18 18 Alkaline Phosphatase 54 54 Total Protein 7.0 7.0 Albumin 3.7 4.0 Quality VTE Prophylaxis VTE prophylaxis: pharmacologic ordered
[2024-03-28] MEDS: CYANOCOBALAMIN 1,000 MCG TABLET 1000 MCG PO (08:30)
[2024-03-28] MEDS: CHOLECALCIFEROL 5,000 UNITS TABLET 5000 UNITS BY MOUTH (08:30)
[2024-03-28] MEDS: BISACODYL 10 MG SUPPOSITORY RECTAL (08:31)
[2024-03-28] MEDS: ENOXAPARIN 40 MG/0.4 ML SYRINGE SUB-Q (08:31)
[2024-03-28] MEDS: oxyBUTYnin CHLORIDE XL 5 MG TAB.ER.24 PO ×2 (08:31→16:18)
[2024-03-28 11:50] VITALS: BP 141/57; PULSE 84
[2024-03-28 14:00] VITALS: BP 120/56; PULSE 102; RESP 14; TEMP 36.9; O2SAT 100
--- NOTE | 2024-03-28 14:15 | ECG_ITS ---
Test Date: 2024-03-28 15:09:23 Measurements Intervals [place] Rate: 76 P: 68 NV: 146 QRS: 29 QRSD: 147 T: 55 QT: 386 QTc: 435 Interpretive Statements SINUS RHYTHM LEFT BUNDLE BRANCH BLOCK BASELINE ARTIFACT- I, II, III, AVR, AVL, AVF, V1-V2, V5-V6 ABNORMAL ECG No previous ECG available for comparison Electronically Signed On 03-28-2024 15:39:04 CDT by Freddie Acevedo D.O.
[2024-03-28 16:00] VITALS: PULSE 94
[2024-03-28] MEDS: METOCLOPRAMIDE HCL 5 MG TABLET PO ×2 (16:18→20:19)
[2024-03-28 19:58] VITALS: BP 118/63; PULSE 85; RESP 16; TEMP 36.8; O2SAT 99
[2024-03-28 20:00] VITALS: PULSE 82
[2024-03-28] MEDS: SENNA/DOCUSATE SODIUM TABLET 1 TAB PO (20:19)
[2024-03-28] MEDS: HYDROcodone/acetaminophen (*CRX) 5-325 MG TABLET 1 TAB PO (21:30)
[2024-03-29] VITALS (7 sets, daily range): BP systolic 117–124; BP diastolic 57–66; PULSE 60–81; RESP 16; TEMP 36.2–37; O2SAT 100
[2024-03-29 05:41] LABS: Basophils Percent Auto 0.6 % (0.2-1.2); Eosinophils Absolute Auto 0.2 K/mm3 (0-0.3); Eosinophils Percent Auto 4.3 % (0-4.4); Hematocrit 34.1 % (42.0-52.0); Hemoglobin 11.5 g/dL (14.0-18.0); Immature Granulocyte Absolute 0.02 K/mm3 (0.00-0.031); Immature Granulocyte Percent A 0.4 % (0-0.5); Lymphocytes Absolute Auto 1.43 K/mm3 (0.9-3.2); Lymphocytes Percent Auto 26.5 % (18.3-44.2); Mean Corpuscular HGB Conc 33.7 g/dl (32-36); Mean Corpuscular Hemoglobin 30.6 pg (26-34); Mean Corpuscular Volume 90.7 fl (80-100); Mean Platelet Volume 9.3 fl (7.4-10.4); Monocytes Absolute Auto 0.4 K/mm3 (0.1-0.6); Monocytes Percent Auto 7.8 % (2.6-8.5); Neutrophils Absolute Auto 3.3 K/mm3 (1.3-6.7); Neutrophils Percent Auto 60.4 % (45.5-73.1); Platelet Count Result 307 k/mm3 (150-375); Red Blood Count 3.76 M/mm3 (4.6-6.20); White Blood Count 5.4 K/mm3 (4.5-10.0)
[2024-03-29 05:57] LABS: Alanine Aminotransferase 19 U/L (6-50); Albumin Level 3.8 g/dL (3.5-5.1); Alkaline Phosphatase 57 U/L (38-126); Anion Gap 7 mmol/L (4-12); Aspartate Amino Transferase 23 U/L (17-59); Bilirubin,Total 1.5 mg/dL (0.2-1.3); Blood Urea Nitrogen 12 mg/dL (9-20); Calcium 8.6 mg/dL (8.4-10.2); Carbon Dioxide 31 mmol/L (22-30); Chloride 101 mmol/L (98-107); Estimated CRCL calculation 130 ml/min; Estimated Glomerular Filt Rate > 60; Glucose 99 mg/dL (65-110); Potassium 3.9 mmol/L (3.4-5.0); Sodium 139 mmol/L (137-145)
[2024-03-29] MEDS: BACLOFEN 10 MG TABLET PO ×2 (06:24→13:23)
[2024-03-29] MEDS: METOCLOPRAMIDE HCL 5 MG TABLET PO ×3 (06:24→16:26)
--- NOTE | 2024-03-29 07:37 | P.PNIM_ITS ---
Progress Note: A&P Assessment and Plan (1) Fracture of distal end of left femur: Code(s): S72.402A - Unspecified fracture of lower end of left femur, initial encounter for closed fracture Status: Acute Assessment and Plan: Knee XR: Spiral fracture of the distal left femoral diaphysis with 20 degrees anterior angulation 3 similar proximal migration. - Per chart review, Orthopedic surgeon Dr. Tapia was consulted and recommended transfer to a tertiary care facility. - ED provider discussed case with orthopedic surgeon Dr. Reyes at [facility]. Per Dr. Reyes recommendations patient was placed in a long-leg posterior splint for comfort - Patient has been accepted at [facility] under hospitalist Dr. Aguayo however bed not yet available. He will be admitted to the medical floor pending transfer. 03/26: Patient states that his left lower extremity appears to be more angled out today compared to yesterday after having his venous duplex performed during which they had to move his long-leg splint. Due to patient's paraplegia he is unable to say if there is any change in sensation or pain in relation to the fracture. Will obtain a x-ray to re-evaluate and ensure the fracture has not moved. - Femur XR repeat: Spiral fracture of the left femoral midshaft with mild anterolateral displacement/angulation and mild overlap. 03/28: Call made to [facility] transfer center at 0800 to get an update on patient and they state that [facility] is still at capacity and are unsure when transfer will be available. Call made to [place] [facility] [place] spoke with Dr. Beasley (trauma) who states that this is more an ortho issue given there was no trauma and has been several days since the incident. Patient accepted at [place] under ortho Dr. Zimmer. Transfer pending bed availability. Call made to [facility] transfer center at 1450. Per their transfer center they are unable to accept patient given his need for a tertiary facility. (2) Edema of left lower leg: Code(s): R60.0 - Localized edema Status: Acute Assessment and Plan: Patient has significant swelling which may be related to the injury and tight Bertrand wrap however he has risk factors for DVT including baseline paraplegia and now a long bone fracture. - Left lower extremity venous Doppler US: negative - Pulses remain 1+ - Monitor (3) Paraplegia, unspecified: Code(s): G82.20 - Paraplegia, unspecified Status: Acute Assessment and Plan: Hx of complete spinal cord injury at T4 through T6. Time Spent With Patient Time with patient: 25 - 35 minutes Subjective Date/time seen: 03/29/24 07:37 Interval history: 53-year-old male with history of complete spinal cord injury at T4 through T6 who presented to the hospital for evaluation left knee swelling. X-ray showed a spiral fracture of the distal left femoral diaphysis and transfer was initiated to [facility] for Trauma Orthopedics. A bed has yet to become available and he is being admitted to the floor in this setting, pending transfers. patient is pleasant lying comfortably in bed. He states that his muscle spasms have improved with Flexeril. He has no complaints at this time denying chest pain, shortness a bracket, nausea/ vomiting, abdominal pain. He did have palpitations yesterday however EKG was negative and these have not since recurred. Patient remains inpatient at this time pending transfer to a tertiary facility. He has been accepted at [facility] however there are currently no beds available. Patient is aware. Review of Systems Review of Systems: All systems reviewed & are unremarkable except as noted in HPI and below Exam Narrative: AF HR 60 RR 16 Spo2 100 BP 124/66 General: male in no acute respiratory distress who is nontoxic appearing, lying semi recumbent in bed. HEENT: Normocephalic. Atraumatic. Extraocular movement intact. Sclera clear and anicteric. No facial asymmetry. Chest: Lungs are clear to auscultation bilaterally. No wheezes or crackles. CV: Heart was regular rate and rhythm. S1/S2. No murmurs, gallops, or rubs. Abd: Abdomen was soft. Nontender. Nondistended. Positive bowel sounds. No organomegaly or masses. Ext: 2+ pitting edema to the Left foot with long leg splint in place. No clubbing, cyanosis. 1+ DP pulses bilaterally. No wounds forming. Neuro: Patient is alert and oriented x4. Speech is clear. Objective Data Vital Signs Vital Signs: Vital Signs - 24 hr 03/28/24 08:27 03/28/24 11:50 03/28/24 14:00 Temperature 98.4 F Pulse Rate 84 102 H Respiratory Rate 14 Blood Pressure 141/57 H 120/56 L Pulse Oximetry 100 Oxygen Delivery Room Air 03/28/24 16:00 03/28/24 19:58 03/28/24 20:00 Temperature 98.3 F Pulse Rate 94 85 82 Respiratory Rate 16 Blood Pressure 118/63 Pulse Oximetry 99 Oxygen Delivery 03/29/24 00:00 03/29/24 04:00 03/29/24 05:38 Temperature 97.2 F L Pulse Rate 77 65 60 Respiratory Rate 16 Blood Pressure 124/66 Pulse Oximetry 100 Oxygen Delivery Intake/Output Intake/Output: Intake & Output 03/26/24 03/27/24 03/28/24 03/29/24 23:59 23:59 23:59 23:59 Intake Total 1860 1560 1520 500 Output Total 2100 489 1685 250 Balance 60 760 220 250 Meds/Results Medications: Active Medications Generic Name Dose Route Start Last Admin Trade Name Freq PRN Reason Stop Dose Admin Acetaminophen 650 mg 03/25/24 17:58 Acetaminophen 325 Mg Tablet PO Q4H PRN Mild Pain (1-3) or Fever Hydrocodone Bitart/Acetaminophen 1 tab 03/25/24 17:58 03/28/24 21:30 Hydrocodone/Acetaminophen (*Crx) 5-325 Mg Tablet PO 1 tab Q4H PRN Administration Pain Rated 4-6 Baclofen 10 mg 03/24/24 22:00 03/29/24 06:24 Baclofen 10 Mg Tablet PO 10 mg Q8HR JAI Administration Bisacodyl 10 mg 03/27/24 09:00 03/28/24 08:31 Bisacodyl 10 Mg Suppository RECTAL 10 mg QAM JAI Administration Cyanocobalamin 1,000 mcg 03/26/24 09:00 03/28/24 08:30 Cyanocobalamin 1,000 Mcg Tablet PO 1,000 mcg QAM JAI Administration Cyclobenzaprine HCl 10 mg 03/28/24 14:45 Cyclobenzaprine Hcl 10 Mg Tablet PO Q8H PRN Muscle Spasm Enoxaparin Sodium 40 mg 03/26/24 09:00 03/28/24 08:31 Enoxaparin 40 Mg/0.4 Ml Syringe SUB-Q 40 mg DAILY JAI Administration Metoclopramide HCl 5 mg 03/28/24 16:30 03/29/24 06:24 Metoclopramide Hcl 5 Mg Tablet PO 5 mg ACHS JAI Administration Morphine Sulfate 2 mg 03/25/24 17:58 Morphine Sulfate (*Crx) 2 Mg/Ml Inj IV PUSH Q2H PRN Pain Rated 7-10 Ondansetron HCl 4 mg 03/25/24 17:58 Ondansetron Inj 4 Mg/2 Ml Vial IV PUSH Q4H PRN Nausea Oxybutynin Chloride 5 mg 03/26/24 09:00 03/28/24 16:18 Oxybutynin Chloride Xl 5 Mg Tab.Er.24 PO 5 mg BID JAI Administration Senna/Docusate Sodium 1 tab 03/27/24 21:00 03/28/24 20:19 Senna/Docusate Sodium Tablet PO 1 tab HS JAI Administration Vitamin D 5,000 units 03/26/24 09:00 03/28/24 08:30 Cholecalciferol 5,000 Units Tablet BY MOUTH 5,000 units DAILY JAI Administration Radiology Results: ITS Impressions Knee X-Ray 03/24/24 11:32 IMPRESSION: 1. Spiral fracture of the distal left femoral diaphysis with 20 degrees anterior angulation 3 similar proximal migration. Hip/Pelvis X-Ray 03/24/24 11:38 IMPRESSION: 1. Moderate osteoarthritis of the hips. 2. Stones in the bladder. Venous Doppler Study 03/25/24 22:33 IMPRESSION: No evidence of deep venous thrombosis in the visualized lower extremity veins. Femur X-Ray 03/26/24 18:32 IMPRESSION: Spiral fracture of the left femoral midshaft with mild anterolateral displacement/angulation and mild overlap. Labs Labs: Laboratory Results - last 24 hr 03/29/24 05:15 WBC 5.4 RBC 3.76 L Hgb 11.5 L Hct 34.1 L MCV 90.7 MCH 30.6 MCHC 33.7 RDW 13.0 Plt Count 307 MPV 9.3 Immature Gran % (Auto) 0.4 Neut % (Auto) 60.4 Lymph % (Auto) 26.5 [place] % (Auto) 7.8 Eos % (Auto) 4.3 Baso % (Auto) 0.6 Lymph # (Auto) 1.43 [place] # (Auto) 0.4 Eos # (Auto) 0.2 Baso # (Auto) 0.0 Abs Immat Gran (auto) 0.02 Absolute Neuts (auto) 3.3 Absolute Nucleated RBC 0.000 Nucleated RBC % 0.0 Sodium 139 Potassium 3.9 Chloride 101 Carbon Dioxide 31 H Anion Gap 7 BUN 12 Creatinine 0.60 L Estim Creat Clear Calc 130 Estimated GFR > 60 Glucose 99 Calcium 8.6 Total Bilirubin 1.5 H AST 23 ALT 19 Alkaline Phosphatase 57 Total Protein 7.0 Albumin 3.8 Quality VTE Prophylaxis VTE prophylaxis: pharmacologic ordered
[2024-03-29] MEDS: ENOXAPARIN 40 MG/0.4 ML SYRINGE SUB-Q (09:40)
[2024-03-29] MEDS: CHOLECALCIFEROL 5,000 UNITS TABLET 5000 UNITS BY MOUTH (09:42)
[2024-03-29] MEDS: CYANOCOBALAMIN 1,000 MCG TABLET 1000 MCG PO (09:42)
[2024-03-29] MEDS: oxyBUTYnin CHLORIDE XL 5 MG TAB.ER.24 PO ×2 (09:42→16:26)
--- NOTE | 2024-03-29 18:11 | PC.NURSE ---
Report called to DELMY Zavaleta @ [facility]. Phone number provided to them for any further questions.
--- NOTE | 2024-03-30 16:09 | PM.TDS ---
Transfer Discharge Sum: Prov Provider Date of admission: 03/26/24 09:22 Primary care physician: Edi Persaud DO Admitting clinician: Olimpia Mesa MD Attending physician on discharge: Olimpia Mesa Discharging clinician: Angelina Hancock Anticipated date of transfer: 03/29/24 Receiving physician/facility: Hospitalist Dr. Aguayo/ [facility] DS: Admitting Diagnosis Discharge Date 03/29/24 Admitting Diagnosis Fracture of distal end of left femur edema of left lower leg paraplegia DS: Discharge Diagnosis Discharge Diagnosis (1) Fracture of distal end of left femur: Code(s): S72.402A - Unspecified fracture of lower end of left femur, initial encounter for closed fracture Status: Acute (2) Edema of left lower leg: Code(s): R60.0 - Localized edema Status: Acute (3) Paraplegia, unspecified: Code(s): G82.20 - Paraplegia, unspecified Status: Acute Transfer Discharge Sum: Med Medications Active and Home Medications: Home Medications cholecalciferol (vitamin D3) 125 mcg (5,000 unit) tablet (Vitamin D3) 125 mcg PO DAILY 10/25/22 [History Confirmed 03/25/24] glucosamine sulfate 500 mg tablet (Glucosamine) 500 mg PO DAILY 10/25/22 [History Confirmed 03/25/24] mecobalamin (vitamin B12) 1,000 mcg chewable tablet (B12 Active) 1,000 mcg PO DAILY 10/25/22 [History Confirmed 03/25/24] turmeric 400 mg capsule 400 mg PO DAILY 10/25/22 [History Confirmed 03/25/24] baclofen 10 mg tablet 10 mg PO TID 03/25/24 [History Confirmed 03/25/24] oxybutynin chloride 5 mg tablet,extended release 24 hr 5 mg PO BID 03/25/24 [History Confirmed 03/25/24] Transfer Discharge Sum: Hosp Hospital Course Hospital course: Mickey Coates is a 53 year old male with history of complete spinal cord injury at T4 through T6 who presented to the hospital for evaluation left knee swelling. Knee X-ray showed a spiral fracture of the distal left femoral diaphysis with 20 degrees anterior angulation 3 similar proximal migration. Per chart review, Orthopedic surgeon Dr. Tapia was consulted and recommended transfer to a tertiary care facility. ED provider discussed case with orthopedic surgeon Dr. Reyes at [facility]. Per Dr. Reyes recommendations patient was placed in a long-leg posterior splint for comfort. Transfer was initiated to [facility] for Trauma Orthopedics. Patient was accepted at [facility] under hospitalist Dr. Aguayo however bed was not yet available. Patient was admitted to the medical floor pending transfer. While admitted patient had significant swelling which may have been related to the injury and tight Bertrand wrap however due to his high risk factors for DVT including baseline paraplegia and now a long bone fracture a doppler was obtained. Venous doppler was negative for DVT. Following the doppler the patient noticed that his left lower extremity appeared to be more angled out compared to the day prior. Due to patient's paraplegia he is unable to say if there is any change in sensation or pain in relation to the fracture. Repeat femur XR was unchanged. Patient was having increased muscle spasms during his admission. He remained on his baclofen and started on flexaril which improved the spasms. On day of discharge, he had no complaints denying chest pain, shortness a breath, nausea/ vomiting, abdominal pain. Patient transferred in a stable condition to [facility]. Time Spent with Patient Time attestation: Total time spent providing and/or coordinating transfer services: Total time spent: Greater than 30 minutes Exam Narrative: AF HR 60 RR 16 Spo2 100 BP 124/66 General: male in no acute respiratory distress who is nontoxic appearing, lying semi recumbent in bed. HEENT: Normocephalic. Atraumatic. Extraocular movement intact. Sclera clear and anicteric. No facial asymmetry. Chest: Lungs are clear to auscultation bilaterally. No wheezes or crackles. CV: Heart was regular rate and rhythm. S1/S2. No murmurs, gallops, or rubs. Abd: Abdomen was soft. Nontender. Nondistended. Positive bowel sounds. No organomegaly or masses. Ext: 2+ pitting edema to the Left foot with long leg splint in place. No clubbing, cyanosis. 1+ DP pulses bilaterally. No wounds forming. Neuro: Patient is alert and oriented x4. Speech is clear. DS: Data Data Completed and Pending Completed studies during hospitalization: femur x-ray venous Doppler hip/pelvis x-ray knee x-ray
== END 2024-03-29 20:07 | disposition short-term general hospital (02) | DRG 534 ==
LOC: ANHED 03-25 17:57 → ANH2MED 03-25 18:43
PROVIDERS: Family Medicine; Registered Nurse; Admitting Provider Internal Medicine; Emergency Provider Emergency Medicine; PCP Family Medicine; Visit Provider Student in an Organized Health Care Education/Training Program
DX: S72.492A Other fracture of lower end of left femur, initial encounter for closed fracture (principal); G82.20 Paraplegia, unspecified; R60.0 Localized edema; S24.112S Complete lesion at T2-T6 level of thoracic spinal cord, sequela
CPT/HCPCS: 36415; 73502; 73552; 73560; 80048; 80053; 81001; 82550; 83605; 85025; 85380; 85610; 85730; 87086; 93005; 93971; 96361; 96372; 96374; 99285; A9270; G0378; J1650; J3360; J7030

== ENCOUNTER 2024-04-28 15:59 | Outpatient (NON) | payer OTHER, SELFPAY ==
[2024-04-28 16:29] LABS: Add Urine Microscopic? YES; Appearance Urine Cloudy (Clear); Bacteria Urine 4+ /hpf; Bilirubin Urine Negative (Negative); Blood Urine 3+ (Negative); Color Urine Dark Yellow (Yellow); Glucose Urine UA Negative (Negative); Ketones Urine Trace mg/dL (Negative); Leukocyte Esterase Ur 3+ LEU/UL (Negative); Need Manual Microscopic Reviewed; Nitrate Urine Positive (Negative); Protein Urine 1+ mg/dL (Negative); RBC Urine >100 /hpf (0-2); Specific Grav Ur 1.016 (1.001-1.035); Squamous Epithelial Cell Urine None Seen /hpf (Few); Urobilinogen Urine 0.2 mg/dL (<2.0); WBC Clumps Urine Present /HPF; WBC Urine >100 /hpf (0-3); pH Urine 7.5 (5.0-9.0)
== END 2024-04-28 16:00 | disposition home or self-care (01) ==
PROVIDERS: PCP Family Medicine; Visit Provider Urology
DX: S24.101D Unspecified injury at T1 level of thoracic spinal cord, subsequent encounter (principal); X58.XXXD Exposure to other specified factors, subsequent encounter
CPT/HCPCS: 81001; 87086; 87181

== ENCOUNTER 2024-05-07 12:09 | Outpatient (NON) | payer OTHER, SELFPAY ==
[2024-05-07 14:16] LABS: Basophils Percent Auto 0.6 % (0.2-1.2); Eosinophils Absolute Auto 0.1 K/mm3 (0-0.3); Eosinophils Percent Auto 1.8 % (0-4.4); Hematocrit 38.3 % (42.0-52.0); Hemoglobin 11.5 g/dL (14.0-18.0); Lymphocytes Absolute Auto 1.12 K/mm3 (0.9-3.2); Lymphocytes Percent Auto 22.9 % (18.3-44.2); Mean Corpuscular Hemoglobin 27.5 pg (26-34); Mean Corpuscular Volume 91.6 fl (80-100); Mean Platelet Volume 10.9 fl (7.4-10.4); Monocytes Absolute Auto 0.3 K/mm3 (0.1-0.6); Monocytes Percent Auto 6.3 % (2.6-8.5); Neutrophils Absolute Auto 3.4 K/mm3 (1.3-6.7); Neutrophils Percent Auto 68.4 % (45.5-73.1); Platelet Count Result 259 k/mm3 (150-375); Red Blood Count 4.18 M/mm3 (4.6-6.20); Red Cell Distribution Width 13.8 % (11.5-14.5); White Blood Count 4.9 K/mm3 (4.5-10.0)
[2024-05-07 14:22] LABS: Alanine Aminotransferase 17 U/L (6-50); Albumin Level 4.1 g/dL (3.5-5.1); Alkaline Phosphatase 139 U/L (38-126); Anion Gap 5 mmol/L (4-12); Aspartate Amino Transferase 24 U/L (17-59); Bilirubin,Total 0.7 mg/dL (0.2-1.3); Blood Urea Nitrogen 15 mg/dL (9-20); Calcium 8.9 mg/dL (8.4-10.2); Carbon Dioxide 28 mmol/L (22-30); Chloride 105 mmol/L (98-107); Cholesterol 176 mg/dL (0-200); Estimated Glomerular Filt Rate > 60; Glucose 69 mg/dL (65-110); HDL Direct 37 mg/dL; Sodium 138 mmol/L (137-145); Triglycerides 127 mg/dL (<150)
[2024-05-07 14:34] LABS: LDL Cholesterol Direct 100 mg/dL
== END 2024-05-07 12:10 | disposition home or self-care (01) ==
LOC: HOME HLTH 12:12
PROVIDERS: PCP Family Medicine; Visit Provider Family Medicine
DX: S24.101D Unspecified injury at T1 level of thoracic spinal cord, subsequent encounter (principal); X58.XXXD Exposure to other specified factors, subsequent encounter; S72.402A Unspecified fracture of lower end of left femur, initial encounter for closed fracture; X58.XXXA Exposure to other specified factors, initial encounter
CPT/HCPCS: 80053; 80061; 85025

== ENCOUNTER 2024-11-12 13:54 | Outpatient (CLI) | payer OTHER, SELFPAY ==
--- OUTSIDE RECORDS SUMMARY | 2024-11-12 15:42 | XMS_ITS | Clinical Summary ---
Author Organization [facility] [employer] Address [address] [place] [address] Care Team Providers Care Stock Handler Name Role Phone Edi Persaud Primary Care Provider [phone] Source Comments [facility] [employer] [facility],non-owned Affiliates and Associated Physician Practices is amultiple site organization consisting of ambulatory clinics and hospital sitesin [place], [place], [place] and [place]. This disclosure is being madepursuant to the Care Everywhere program and may not contain all information available regarding this patient. Last updated 18.[facility] [employer] Allergies Active Allergy Reactions Criticality Noted Date Comments Cyclobenzaprine Psychiatric Medium 04/06/2024 Feels like he's high and super drowsy Medications * Be aware that medications may not be up to date on this document. Alwaysverify current medications with the patient. acetaminophen (Tylenol) 500 MG tablet Take 1 (one) tablet by mouth every 4 hours as needed Maximum allowable Acetaminophen amount = 4 Grams (4000 mg) / 24 hours. 4 Active baclofen (Lioresal) 10 MG tablet Take 1 (one) tablet by mouth 3 times daily May cause drowsiness. 4 Active bisacodyl (Dulcolax) 10 MG suppository Insert 1 (one) suppository into the rectum once daily 4 Active diphenhydrAMINE (Benadryl) 50 MG capsule Take 1 (one) capsule by mouth every 4 hours as needed for Itching 4 Active apixaban (Eliquis) 2.5 MG tablet Take 1 (one) tablet by mouth 2 times daily for at least 35 days and with negative ultrasound duplex of left leg. 4 Active hemorrhoidal (Preparation H) ointment Insert into the rectum 3 times daily 4 Active melatonin 3 MG tablet Take 1 (one) tablet by mouth at bedtime 4 Active multiple vitamins with minerals tablet Take 1 (one) tablet by mouth once daily 4 Active polyethylene glycol 3350 (Miralax) 17 g packet Take 17 (seventeen) g by mouth 3 times daily 4 Active oxyBUTYnin CR 24hr (Ditropan-XL) 5 MG tablet Take 1 (one) tablet by mouth once daily 4 Active senna-docusate (Senokot-S) 8.6-50 MG tablet Take 2 (two) tablets by mouth 2 times daily 4 Active simethicone (Mylicon) 80 MG chew tablet Take 1 (one) tablet by mouth 3 times daily 4 Active vitamin D3 (Cholecaciferol ) 125 MCG (5000 UT) tablet Take 1 (one) tablet by mouth once daily 4 Active oxyBUTYnin CR 24hr (Ditropan XL) 5 MG tablet Take 1 (one) tablet by mouth 2 times daily 4 Active Active Problems Problem Noted Date Diagnosed Date Constipation due to neurogenic bowel 04/06/2024 Ileus 04/06/2024 Neurogenic bladder 04/06/2024 External hemorrhoid 03/31/2024 Paraplegia at T4 level 03/31/2024 Closed displaced spiral fracture of shaft of fem ur 03/24/2024 Social History Tobacco Use Types Packs/Day Years Used Date Smoking Tobacco: Never Passive Smoke Exposure: Never Smokeless Tobacco: Never Tobacco Cessation:Counseling Given: No Alcohol Use Standard Drinks/Week Comments Never 0 (1 standard drink = 0.6 oz pur e alcohol) AUDIT-C Answer Date Recorded Q1: How often do you have a drink containing alcohol? Never 03/29/2024 Q2: How many drinks containi ng alcohol do you have on a typical day when you are drinking? Patient does not drink 4 Q3: How often do you have si x or more drinks on one occasion? Never 03/29/2024 Overall Financial Resource Strain (CARDIA) Answe r Date Recorded How hard is it for you to pa y for the very basics like food, housing, medical care, and heating? Not hard at all 03/30/2024 [facility] - Occupational Stress Questionnaire Answer Date Recorded Do you feel stress - tense, restless, nervous, or anxious, or unable to sleep at night because your mind is troubled all the time - these days? Not at all 03/30/2024 Hunger Vital Sign Answer Date Recorded Within the past 12 months, y ou worried that your food would run out before you got the money to buy more. Never true 03/30/20 24 Within the past 12 months, t he food you bought just didn't last and you didn't have money to get more. Never true 03/30/2024 PRAPARE - Transportation Answer Date Re corded In the past 12 months, has l ack of transportation kept you from medical appointments or from getting medications? No 07/2023 In the past 12 months, has l ack of transportation kept you from meetings, work, or from getting things needed for daily living? No 03/30/2024 Housing Stability Vital Sign Answer Christian e Recorded In the last 12 months, was t here a time when you were not able to pay the mortgage or rent on time? No 03/30/2024 In the past 12 months, how m any times have you moved where you were living? 0 03/30/2024 At any time in the past 12 m [facility], were you homeless or living in a fpc (including now)? No 03/30/2024 Sex and Gender Information Value Date Recorded Sex Assigned at Not on file Legal Sex Male 6:13 AM NATURAL RESOURCES EXTENSION EDUCATOR Gender Identity Not on file Sexual Orientation Not on file Last Filed Vital Signs Vital Sign Reading Time Taken Comments Blood Pressure 126/52 04/15/2024 4:17 AM NATURAL RESOURCES EXTENSION EDUCATOR Pulse 59 04/15/2024 4:17 AM NATURAL RESOURCES EXTENSION EDUCATOR Temperature 36.6 C (97.9 F) 04/15/2024 4:17 AM NATURAL RESOURCES EXTENSION EDUCATOR Respiratory Rate 20 04/15/2024 4:17 AM NATURAL RESOURCES EXTENSION EDUCATOR Oxygen Saturation 96% 04/15/2024 4:17 AM NATURAL RESOURCES EXTENSION EDUCATOR Inhaled Oxygen Concentration - - Weight 86.2 kg (190 lb) 04/10/2024 3:59 AM NATURAL RESOURCES EXTENSION EDUCATOR Height 180.3 cm (5' 10.98) 03/29/2024 10:27 PM CDT Body Mass Index 26.51 03/29/2024 10:27 PM CDT Plan of Treatment Health Maintenance Due Date Last Done Comments MAURY (AGES 45-75) - COLON CA SCREENING 1971 COLON MONITORING 1971 COLONOSCOPY - COLON CA SCREENING 1971 CT COLONOGRAPHY - COLON CA SCREENING 1971 Colorectal Cancer Screening 1971 FIT - COLON CA SCREENING 1971 FLEX SIG - COLON CA SCREENING 1971 LIPID TESTING 1971 HIV SCREENING 1986 HEPATITIS C SCREENING 05/28/1989 DTAP/TDAP/TD VACCINES (1 - Tdap) 1990 HEPATITIS B VACCINE (1 of 3 - 19+ 3-dose series) 1990 PNEUMOCOCCAL VACCINE 50+ (1 of 1 - PCV) 2021 ZOSTER VACCINE (1 of 2) 2021 COVID-19 VACCINE (1 - season) 2024 DEPRESSION SCREENING 05/28/2024 INFLUENZA VACCINE (Season Ended) 2025 SCREENING FOR DIABETES 04/12/2027 , 04/10/2024, 04/05/2024, Additional history exists HIB VACCINE Aged Out No longer eligi ble based on patient's age to complete this topic HPV VACCINE Aged Out No longer eligi ble based on patient's age to complete this topic MENINGOCOCCAL (Group B) VACCINE SHARED DECISION-MAKING Aged Out No longer eligible based on patient's age to complete this topic MENINGOCOCCAL GROUPS A/C/Y/W VACCINE Aged Out No longer eligible based on patient's age to complete this topic Medical Devices Implanted Type Area Type Copyist Device Identifier Shelf Expiration Date Model / Serial / Lot 18 Hole Ltva Curved Condylar Plate Implanted:Qty: 1 on 03/30/2024 by Shirley Crabtree MD at [facility] [id number] / / Screw 4.5mm 8mm 66mm Alex Slf-Tap Lg Hex Implanted:Qty: 1 on 03/30/2024 by Shirley Crabtree MD at [facility] [employer] [id number] / / Screw 4.5mm 8mm 76mm Cortx Slf-Tap Lg Implanted:Qty: 1 on 03/30/2024 by Shirley Crabtree MD at [facility] [employer] [id number] / / 4.5 Mm Cortex Screws, Self Tapping, 3.5 Hex Implanted:Qty: 1 on 03/30/2024 by Shirley Crabtree MD at [facility] [id number] / / Screw 4.5mm 8mm 90mm Alex Slf-Tap Lg Hex Implanted:Qty: 1 on 03/30/2024 by Shirley Crabtree MD at [facility] [id number] / / 5.0 Mm Cannulated Variable Angle Locking Screws, 4.0 Mm Hex 85mm Implanted:Qty: 2 on 03/30/2024 by Shirley Crabtree MD at [facility] [id number] / / 5.0 Mm Cannulated Variable Angle Locking Screws, 4.0 Mm Hex 90mm Implanted:Qty: 3 on 03/30/2024 by Shirley Crabtree MD at [facility] [id number] / / Screw 3.5mm 6mm 36mm 2.5mm Ft Slf-Tap Implanted:Qty: 2 on 03/30/2024 by Shirley Crabtree MD at [facility] [id number] / / Screw 3.5mm 6mm 38mm 2.5mm Ft Slf-Tap Implanted:Qty: 1 on 03/30/2024 by Shirley Crabtree MD at [facility] [employer] [id number] / / Screw 4.5mm 8mm 40mm 3.5mm Slf-Tap Lg Implanted:Qty: 2 on 03/30/2024 by Shirley Crabtree MD at [facility] [employer] 214.840 / / Screw 4.5mm 8mm 54mm Cortx Slf-Tap Lg Implanted:Qty: 1 on 03/30/2024 by Shirley Crabtree MD at [facility] [id number] / / Explanted Type Area Type Copyist Device Identifier Shelf Expiration Date Model / Serial / Lot Screw 5mm 200mm Dist Rds Blnt Troc Pnt Explanted:Qty: 1 on 03/30/2024 at [facility] [employer] [id number] / / Screw 5mm 200mm Dist Rds Blnt Troc Pnt Explanted:Qty: 1 on 03/30/2024 at [facility] 294.56 / / Procedures Procedure Name Priority Date/Time Associated Diagnosis Comments RENAL FUNCTION PANEL Routine 04/12/2024 7:31 PM NATURAL RESOURCES EXTENSION EDUCATOR from Last 3 Months or Most Recently Relevant to Health Maintenance Results * (ABNORMAL) RENAL FUNCTION PANEL (04/12/2024 7:31 PM NATURAL RESOURCES EXTENSION EDUCATOR) BUN 12 7 - 26 mg/dL 04/12/2024 8:[address] [facility] Creatinine 0.65(L) 0.71 - 1.16 mg/dL 04/12/2024 8:[address] [facility] Sodium 137 136 - 145 mmol/L 04/12/2024 8:[address] [facility] Potassium 4.1 3.5 - 4.5 mmol/L 04/12/2024 8:[address] [facility] Chloride 106 98 - 107 mmol/L 04/12/2024 8:[address] [facility] CO2 23 22 - 29 mmol/L 04/12/2024 8:[address] [facility] Glucose 97 70 - 99 mg/dL 04/12/2024 8:[address] [facility] Albumin 3.0(L) 3.4 - 5.0 g/dL 04/12/2024 8:[address] [facility] Calcium 8.4 8.4 - 10.2 mg/dL 04/12/2024 8:[address] [facility] Phosphorus 3.4 2.8 - 5.1 mg/dL 04/12/2024 8:[address] [facility] Anion Gap 8 6 - 16 04/12/2024 8:[address] [facility] BUN/Creatinine Ratio 18 7 - 23 04/12/2024 8:[address] [facility] Osmolality Calculated 284 275 - 295 mOsm/kg 04/12/2024 8:[address] [facility] eGFR by CKD-EPI >90 >=90 mL/min/1.7 3 m2 04/12/2024 8:[address] [facility] Blood BLOOD SPECIMEN / Unknown Lab Venipuncture / Unknown 04/12/2024 7:31 PM NATURAL RESOURCES EXTENSION EDUCATOR 04/12/2024 8:16 PM NATURAL RESOURCES EXTENSION EDUCATOR Nakia Gonzalez MD LAB - CHEMISTRY ORDERABLES Sera smith Result [facility] [address] [place] [address], [facility] [phone] from Last 3 Months or Most Recently Relevant to Health Maintenance Insurance [facility] SELF PAY NO INSURANCE Member Subscriber Plan / Payer (Ef fective for All Dates) Name:Stanislav Sanabria Member ID:Not on file Relation to Subscriber:Not on file Name:STANISLAV SANABRIA Subscriber ID:Not on file (Home) Address[address] [place] [address] Payer ID:Not on file Group ID:Not on file Type:Self Pay Address: [facility] SELF PAY NO INSURANCE Member Subscriber Plan / Payer (Ef fective for All Dates) Name:Stanislav Sanabria Member ID:Not on file Relation to Subscriber:Not on file Name:STANISLAV SANABRIA Subscriber ID:Not on file (Home) Address: [address] [place] [address] Payer ID:Not on file Group ID:Not on file Type:Self Pay Address: [facility] SELF PAY NO INSURANCE Member Subscriber Plan / Payer (Ef fective for All Dates) Name:Stanislav Sanabria Member ID:Not on file Relation to Subscriber:Not on file Name:STANISLAV SANABRIA Subscriber ID:Not on file (Home) Address: [address] [place] [address] Payer ID:Not on file Group ID:Not on file Type:Self Pay Address: [facility] SELF PAY NO INSURANCE Member Subscriber Plan / Payer (Ef fective for All Dates) Name:Stanislav Sanabria Member ID:Not on file Relation to Subscriber:Not on file Name:STANISLAV SANABRIA Subscriber ID:Not on file (Home) Address: [address] [place] [address] Payer ID:Not on file Group ID:Not on file Type:Self Pay Address: [facility] SELF PAY NO INSURANCE Member Subscriber Plan / Payer (Ef fective for All Dates) Name:Stanislav Sanabria Member ID:Not on file Relation to Subscriber:Not on file Name:STANISLAV SANABRIA Subscriber ID:Not on file (Home) Address: [address] [place] [address] Payer ID:Not on file Group ID:Not on file Type:Self Pay Address: [facility] SELF PAY NO INSURANCE Member Subscriber Plan / Payer (Ef fective for All Dates) Name:Stanislav Sanabria Member ID:Not on file Relation to Subscriber:Not on file Name:STANISLAV SANABRIA Subscriber ID:Not on file (Home) Address: [address] [place] [address] Payer ID:Not on file Group ID:Not on file Type:Self Pay Address: [facility] * Guarantor: STANISLAV SANABRIA Account Type Relation to Patient Date of Phone Billing Address Personal/Family Spouse Advance Directives * Full Code (Latest Code Status on File) Date Activated Date Inactivated Comments 03/29/2024 9:42 PM 04/15/2024 5:28 PM Care Teams Stock Handler Relationship Specialty Start Date End Date Edi Persaud DO [facility] [place] [address] PCP - General Family Medicine 03/30/24
[2024-11-12 16:48] LABS: Prostate Specific Antigen 0.8 ng/mL (< OR = 4.0)
== END 2024-11-12 13:55 | disposition home or self-care (01) ==
LOC: ANHLAB 13:57
PROVIDERS: PCP Family Medicine; Visit Provider Family Medicine
DX: Z00.00 Encounter for general adult medical examination without abnormal findings (principal); N40.0 Benign prostatic hyperplasia without lower urinary tract symptoms
CPT/HCPCS: 36415; 84153

== ENCOUNTER 2025-05-11 11:13 | Outpatient (CLI) | payer OTHER, SELFPAY ==
--- NOTE | ~2025-05-11 | XR_ITS ---
EXAMINATION: XR abdomen/kub 1V, 05/11/2025 11:25 GLUING MACHINE OFFBEARER HISTORY: Bladder stone COMPARISON: No comparisons available. Technique: 3 view. Findings: Moderate fecal content, no dilated bowel loops. Multiple calculi noted in the bladder the largest measuring 1.3 x 1 cm. No acute osseous abnormality. Impression: 1. Multiple bladder calculi. Reviewed, dictated and finalized at location P. NG MACHINE OFFBEARER Impression: 1. Multiple bladder calculi.
== END 2025-05-11 11:14 | disposition home or self-care (01) ==
PROVIDERS: PCP Family Medicine; Visit Provider Physician Assistant
DX: N21.0 Calculus in bladder (principal)
CPT/HCPCS: 74018